=== PATIENT | female | born 1975 | race Caucasian/White ===

== ENCOUNTER 2020-06-30 14:50 | Outpatient (CLI) | payer BC, SELFPAY ==
--- NOTE | ~2020-06-30 | MM_ITS ---
EXAMINATION: MM screening [place] BI w colette HISTORY: Screening mammogram TECHNIQUE: Craniocaudal and mediolateral oblique 3-D tomosynthesis images were obtained and synthetic 2-D images were generated. CAD analysis was submitted and interpreted. COMPARISON: None, baseline BREAST PARENCHYMAL COMPOSITION: The breasts are heterogeneously dense, which may obscure small masses . FINDINGS: RIGHT BREAST: An asymmetry is present in the middle third of the upper breast 6 cm from the nipple on the mediolateral oblique view. LEFT BREAST: A mass is present in the far posterior third of the outer breast which could reflect a l ymph node however further imaging evaluation is recommended.. IMPRESSION: 1. Bilateral breast findings as described above. 2. Additional mammographic views and possible breast ultrasound are recommended to evaluate for malig vianey and establish a baseline given that this is the first mammographic examination. BI-RADS Category 0: Incomplete: Needs additional imaging evaluation. Reviewed, dictated and finalized at location A. ICAL SERVICES DIRECTOR IMPRESSION: 1. Bilateral breast findings as described above. 2. Additional mammographic views and possible breast ultrasound are recommended to evaluate for malignancy and establish a baseline given that this is the fir st mammographic examination. BI-RADS Category 0: Incomplete: Needs additional imaging evaluation.
== END 2020-06-30 14:51 | disposition home or self-care (01) ==
PROVIDERS: PCP Family Medicine; Visit Provider Nurse Practitioner Obstetrics & Gynecology
DX: Z12.31 Encounter for screening mammogram for malignant neoplasm of breast (principal); R92.8 Other abnormal and inconclusive findings on diagnostic imaging of breast
CPT/HCPCS: 77063; 77067

== ENCOUNTER 2020-07-29 12:53 | Outpatient (CLI) | payer BC, SELFPAY ==
--- NOTE | ~2020-07-29 | MMUS_ITS ---
EXAMINATION: MM diagnostic mammo BI, US breast LT limited HISTORY: Right breast asymmetry and left breast mass on baseline screening mammogram TECHNIQUE: Additional 3-D tomosynthesis images of the breasts were performed and synthetic 2-D images were generated. CAD analysis was submitted and interpreted. High resolution limited left breast ultr asound was performed. COMPARISON: 06/30/2020 FINDINGS: MAMMOGRAPHIC FINDINGS: No persistent asymmetry is identified with spot compression of the right breast. There is a 9 mm oval , equal density, obscured mass in far posterior third of the left breast at the 1:00 location 9 cm fr om the nipple which appears to contain fat. ULTRASOUND: Benign-appearing lymph nodes are seen in the upper outer quadrant of the left breast and left axilla. No suspicious cystic or solid mass is identified. IMPRESSION: 1. No mammographic or sonographic evidence of malignancy. 2. Recommend routine screening mammography in one year. BI-RADS Category 2: Benign finding(s). Reviewed, dictated and finalized at location A. R TAXI FERRY OPERATOR IMPRESSION: 1. No mammographic or sonographic evidence of malignancy. 2. Recommend routine screening mammography in one year. BI-RADS Category 2: Benign finding(s).
== END 2020-07-29 12:54 | disposition home or self-care (01) ==
PROVIDERS: PCP Family Medicine; Visit Provider Nurse Practitioner Obstetrics & Gynecology
DX: R92.8 Other abnormal and inconclusive findings on diagnostic imaging of breast (principal); R92.1 Mammographic calcification found on diagnostic imaging of breast
CPT/HCPCS: 76642; 77066

== ENCOUNTER 2021-09-12 08:25 | Outpatient (CLI) | payer BC, SELFPAY ==
--- NOTE | ~2021-09-12 | MM_ITS ---
EXAMINATION: MM screening [place] BI w colette HISTORY: Screening TECHNIQUE: Craniocaudal and mediolateral oblique 3-D tomosynthesis images were obtained and synthetic 2-D images were generated. CAD analysis was submitted and interpreted. COMPARISON: No prior mammogram is available for comparison at this institution. BREAST PARENCHYMAL COMPOSITION: The breasts are heterogeneously dense, which may obscure small masses . FINDINGS: Bilateral breast asymmetries are stable. There is no evidence of suspicious mass, calcifica tion, or architectural distortion to suggest malignancy in either breast. There has been no suspiciou s interval change. IMPRESSION: 1. No mammographic evidence of malignancy. 2. Recommend routine screening mammography in one year. BI-RADS Category 1: Negative Reviewed, dictated and finalized at location A. TURBINE MECHANIC
== END 2021-09-12 08:26 | disposition home or self-care (01) ==
LOC: ANHIMG 08:26
PROVIDERS: PCP Family Medicine; Visit Provider Nurse Practitioner Obstetrics & Gynecology
DX: Z12.31 Encounter for screening mammogram for malignant neoplasm of breast (principal)
CPT/HCPCS: 77063; 77067

== ENCOUNTER 2022-11-23 14:55 | Outpatient (CLI) | payer BC, SELFPAY ==
--- NOTE | ~2022-11-23 | MM_ITS ---
EXAMINATION: MM screening [place] BI w colette HISTORY: Screening mammogram TECHNIQUE: Craniocaudal and mediolateral oblique 3-D tomosynthesis images were obtained and synthetic 2-D images were generated. CAD analysis was submitted and interpreted. COMPARISON: September 12, 2021 bilateral screening mammogram July 29, 2020 diagnostic bilateral mammogram and limited left breast ultrasound 06/30/2020 bilateral screening mammogram BREAST PARENCHYMAL COMPOSITION: The breasts are heterogeneously dense, which may obscure small masses . FINDINGS: Right breast: There are numerous microcalcifications and asymmetry on the right. Diagnostic right jaiden mogram with magnification views and compression views as appropriate to be recommended, with ultrasou nd if required. Left breast: Stable approximately 3.6 mm circumscribed opacity is noted in the posterior upper outer left breast, not significant change since 06/30/2020, consistent with benign process. IMPRESSION: 1. Right breast microcalcifications and asymmetry 2. Diagnostic right mammogram is recommended, with ultrasound if required BI-RADS Category 0: Incomplete: Needs additional imaging evaluation. Reviewed, dictated and finalized at location A.
== END 2022-11-23 14:56 | disposition home or self-care (01) ==
LOC: ANHIMG 14:57
PROVIDERS: PCP Family Medicine; Visit Provider Nurse Practitioner Obstetrics & Gynecology
DX: Z12.31 Encounter for screening mammogram for malignant neoplasm of breast (principal); R92.0 Mammographic microcalcification found on diagnostic imaging of breast
CPT/HCPCS: 77063; 77067

== ENCOUNTER → 2022-11-28 07:48 | Outpatient (CLI) | payer BC, SELFPAY ==
--- NOTE | ~2022-11-28 | US_ITS ---
Abdominal Sonogram: Real-time sonographic imaging of the abdomen was performed. Clinical History: Abnormal serum enzymes Findings: The liver appears normal with no evidence of mass lesion or bile duct dilatation. Main por lucas vein demonstrates normal direction of flow. The spleen is normal in size without evidence of foca l lesion. The gallbladder is well distended, and appears normal with no evidence of gallstone. 5 mm gallbladder wall polyp noted. The common bile duct measures 3 mm. The visualized pancreas, aorta, an d IVC are unremarkable. The right kidney measures 9.7 cm in length and the left kidney measures 10.0 cm. There is no hydronephrosis or renal calculus. Impression: 5 mm gallbladder wall polyp. Reviewed, dictated and finalized at location M. Impression: 5 mm gallbladder wall polyp.
== END ==
PROVIDERS: PCP Family Medicine; Visit Provider Family Medicine
DX: R74.8 Abnormal levels of other serum enzymes (principal); K82.4 Cholesterolosis of gallbladder
CPT/HCPCS: 76700

== ENCOUNTER 2022-12-14 11:47 | Outpatient (CLI) | payer BC, SELFPAY ==
--- NOTE | ~2022-12-14 | MMUS_ITS ---
EXAMINATION: MM diagnostic [place] RT w colette, US breast RT limited HISTORY: Right breast calcification and asymmetry on screening mammogram TECHNIQUE: Additional 3-D tomosynthesis images of the right breast were performed and synthetic 2-D i mages were generated. CAD analysis was submitted and interpreted. High resolution limited right breas t ultrasound was performed. COMPARISON: 11/23/2022, 09/12/2021, 07/29/2020, 06/30/2020 FINDINGS: MAMMOGRAPHIC FINDINGS: An asymmetry of the lower right breast has an appearance similar prior mammograms with spot compressi on. There are grouped fine pleomorphic calcifications in the posterior third of the upper inner quadr ant of the breast at the 1:00 location 6 cm from the nipple. There appears to be a subtle obscured as sociated mass. ULTRASOUND: There is a 12 mm x 6 mm irregular, hypoechoic mass with annular margins, no posterior features, and n o internal vascularity at the 1:00 location 3 cm from the nipple. IMPRESSION: 1. Indeterminate right breast mass with associated calcification. 2. Ultrasound-guided biopsy is recommended. BI-RADS category 4, suspicious findings. Reviewed, dictated and finalized at location A. IMPRESSION: 1. Indeterminate right breast mass with associated calcification. 2. Ultrasound-guided biopsy is recommended. BI-RADS category 4, suspicious findings.
== END 2022-12-14 11:48 | disposition home or self-care (01) ==
PROVIDERS: PCP Family Medicine; Referring Provider Nurse Practitioner Obstetrics & Gynecology; Visit Provider Family Medicine
DX: R92.8 Other abnormal and inconclusive findings on diagnostic imaging of breast (principal)
CPT/HCPCS: 76642; 77061; 77065; G0279

== ENCOUNTER 2023-01-01 09:43 | Outpatient (CLI) | payer BC, SELFPAY ==
--- NOTE | ~2023-01-01 | MMUS_ITS ---
EXAMINATION: US breast biopsy RT w image, MM post biopsy invasive RT DATE: 01/01/2023 11:56 (accession [id number]), 01/01/2023 10:45 (accession [id number]) INDICATION: Indeterminate mass at the 1:00 location of the right breast. Ultrasound-guided core biops y is requested to evaluate for malignancy. TECHNIQUE AND FINDINGS: The risks and potential benefits of the procedure were discussed with the patient including bleeding and infection. A time out was performed. The skin of the right breast was prepared and draped in usua l sterile fashion. 1% lidocaine was used for superficial anesthesia. 1% lidocaine with epinephrine wa s used for deep anesthesia. A vacuum-assisted biopsy needle was advanced through to the outer edge of the region of interest from an inferior approach utilizing sonographic guidance. A total of seven tissue core samples were [place] through the lesion. A tissue marker clip was then placed at the biopsy site. Hemostasis was achie car. A sterile bandage was applied. The patient tolerated procedure well and there was no evidence of immediate complication. The patient was given verbal instructions to return to the Emergency Department in the event of severe breast pa in or rapid breast enlargement. A two view right breast mammogram was obtained to document tissue mar ker clip placement. IMPRESSION: 1. Successful ultrasound-guided vacuum-assisted biopsy of right breast mass with tissue marker placem ent. Reviewed, dictated and finalized at location A. IMPRESSION: 1. Successful ultrasound-guided vacuum-assisted biopsy of right breast mass wit h tissue marker placement.
== END 2023-01-01 09:44 | disposition home or self-care (01) ==
LOC: ANHIMG 09:46
PROVIDERS: PCP Family Medicine; Visit Provider Surgery
DX: N63.10 Unspecified lump in the right breast, unspecified quadrant (principal)
CPT/HCPCS: 19083; 88305; 88342; 88360; A4648

== ENCOUNTER 2023-02-05 09:19 | Outpatient (CLI) | payer BC, SELFPAY ==
--- NOTE | ~2023-02-05 | US_ITS ---
US_MAGSEEDRT_US DATE: 02/05/2023 10:17 INDICATION: Invasive ductal carcinoma; preoperative Magseed placement TECHNIQUE: The purpose of the procedure, technique and potential complications including bleeding wer e discussed with the patient. The patient indicated understanding and gave consent. Timeout procedure was performed. The skin of the right breast was prepared sterile Betadine. Sterile drapes were applied. 1% lidocaine local anesthetic was administered to the skin and underlying subcutaneous tissues at the upper outer aspect of the right breast. A 7 cm maximal needle was introduced from a lateral approach into the ri t breast 1:00 irregular hypoechoic mass. Sonographic images confirmed position of the needle within the mass. The maxillary was deployed through the tip of the needle and the needle withdrawn. The patient was very cooperative and tolerated procedure without complaint or apparent complication. Digital MLO and CC mammographic images following the procedure confirmed the successful deployment of the mag seed marker. IMPRESSION: Successful ultrasound-guided mag seed deployment at 1:00 right breast mass Reviewed, dictated and finalized at Location A. Reviewed, dictated and finalized at location A. IMPRESSION: Successful ultrasound-guided mag seed deployment at 1:[address] mass
--- NOTE | ~2023-02-05 | MM_ITS ---
EXAMINATION: MM post biopsy invasive RT HISTORY: Preoperative Mag seed placement for invasive ductal carcinoma TECHNIQUE: ML and CC right diagnostic mammographic views were obtained following ultrasound-guided ma g seen placement. FINDINGS: A radiopaque maxillary marker is identified in the posterior upper inner right breast appro ximately 1:00 position approximately 8 mm posterior to the trigger radiopaque biopsy marker. IMPRESSION: MAGseed deployment at posterior upper inner quadrant of right breast Reviewed, dictated and finalized at location A.
== END 2023-02-05 09:20 | disposition home or self-care (01) ==
PROVIDERS: PCP Family Medicine; Visit Provider Surgery
DX: C50.911 Malignant neoplasm of unspecified site of right female breast (principal); N63.12 Unspecified lump in the right breast, upper inner quadrant
CPT/HCPCS: 19285; A4648

== ENCOUNTER 2023-02-26 00:06 | Day surgery (SDC) | payer BC, SELFPAY ==
[2023-02-15 14:13] VITALS: BMI 25.7
--- NOTE | 2023-02-15 14:14 | SUR.PREOP ---
Report to the Outpatient Waiting Room, entrance under the green pavilion located off [facility], at time _0600 on date _02/26/23 . Planned Procedure Time: _0730 . Time changes happen often and if your time is changed the preop area will call you the afternoon before. - You and your visitor will be asked to self-screen and do not enter if you have any COVID symptoms. - A mask is optional within the hospital at this time. Patients may have clear liquids (water, carbonated beverages, clear teas, apple juice) until 3 hours prior to surgery with a maximum of 20 ounces. - No food from midnight until time of surgery - Infants may have breast milk until 4 hours before surgery, infant formula 6 hours prior to surgery. - Children will be allowed to drink immediately following surgery. If applicable, please bring a bottle or sippy cup to assist with drinking. Juice, water, soda, and popsicles are readily available. For infants on formula, please bring formula the day of surgery. Pacifiers are allowed. Take the following medications with a SIP of water the morning of surgery: __bupropion DO NOT STOP ANY OF YOUR OTHER PRESCRIPTION MEDICATIONS PRIOR TO SURGERY ?EXCEPT THE FOLLOWING Medications to discontinue per physician ___vitamin supplements Date to take last dose__02/23/23 Please no make-up, nail croatian, hairspray, perfume, deodorant, or body powder the day of surgery. No jewelry (including any body piercings) or valuables the day of surgery, leave them at home. Please take a shower or bath the night before, or the morning of, surgery with an antibacterial soap. Wear comfortable, loose fitting clothing. Children are encouraged to wear pajamas. - Jewelry must be removed prior to entering the operating room. Rings and piercings that are not removed may be cut off. - The hospital will not accept responsibility for valuables. - Please leave all valuables, including medications, at home the day of surgery. If you are going home after surgery, a licensed [employer] flatbed driver must drive you home. - NO public transportation without another adult if you receive anesthesia. - We recommend that an adult stay with you for 24 hours following discharge. - We also recommend that you do not drive, make important decision, drink alcoholic beverages, or take any drugs that were not prescribed by your health care provider for at least 24 hours after your discharge time. For Pediatric surgeries, we recommend two adults accompany the child home. Follow any additional instructions given to you from your surgeon. If you or anyone in your household have experienced Covid symptoms in the past week, please notify your surgeon or the nurse liaison at the phone number below for possible testing. Telephone instructions given to _chantel soctt and asked if any additional questions and then verbalized understanding. Patient advised to call surgeon office or pre surgery nurse liaison [phone] if any additional questions.
--- NOTE | 2023-02-25 15:10 | P.PNAN_ITS ---
Anes - Initial Pre Proc Eval Procedure: Operation Date: 02/26/23 07:30 Proposed Procedures p Right Breast Lumpectomy with [place] Lymph Node Biopsy - Una Meng MD Date/Time: 02/25/23 15:10 Surgeon: Una Meng MD Pre Op Diagnosis: malignant neoplasm unspecified site rt breast Patient Data Age: 47 Gender: F Height: 1.6 m Weight: 65.9 kg Allergies Allergy/AdvReac Type Severity Reaction Status Date / Time No Known Allergies Allergy Mild Verified 02/26/23 06:23 Home Medications Medication Instructions Recorded Confirmed Type bupropion HCl 300 mg 24 hr tablet, 300 mg PO QAM 03/14/21 02/26/23 History extended release propranolol 20 mg tablet See Rx Instructions .Route 11/08/22 02/26/23 Rx .COMPLEX #90 tabs multivitamin (Daily Multi-Vitamin 1 tablet PO DAILY 12/18/22 02/26/23 History tablet) omega-3 fatty acids 1,000 mg 1,000 mg PO DAILY 12/18/22 02/26/23 History capsule cholecalciferol (vitamin D3) 25 25 mcg PO DAILY 02/15/23 02/26/23 History mcg (1,000 unit) tablet (Vitamin D3) Patient hx anesthesia problems: none Family hx anesthesia problems: none Results Review: All pre-operative results and documents have been reviewed as part of the pre- operative evaluation. [facility] Past Medical History Medical History (Updated 02/25/23 @ 15:11 by Terrence Denise MD) Breast mass, right Invasive ductal carcinoma of right breast Migraine without aura and without status migrainosus, not intractable Family History Family History Mother Patient's mother is in good health Father Patient's father is in good health Family history of malignant melanoma Acute myocardial infarction Sibling Patient's sister is in good health Grandparent Cerebrovascular accident Social History Social History Smoking status: Never smoker Second hand tobacco smoke exposure: No Alcohol intake: current Substance use: never Substance use type: does not use Lack of Transportation: No Lack of Food: Never True Current Housing: I Have Housing Concerned About Future Housing: No Difficulty Paying Gas/Electric Bills: No Difficulty Paying for Meds: No Currently Unemployed: No Education: Bachelor's Degree Difficulty w/ Childcare or Family Care: No Living arrangements: with family Occupation/Education: occupation Gender identity (if verbalized by the patient): Female Spiritual care concerns: No Anes - Eval Final PreProcedure Day of Procedure 02/25/23 15:10 Patient weight: normal Heart: regular rate and rhythm Lungs: clear to auscultation and normal air movement Airway: Mallampati scale class II Neurological: alert and oriented Last oral intake: >/= 8 hours ASA classification: III Emergent: no Anesthetic plan: proceed Anesthesia type and monitoring: general LMA Results Review: All pre-operative results and documents have been reviewed as part of the pre- operative evaluation. Informed Consent: The patient's anesthetic plan and its attendant risks and benefits were discussed with the patient/family/POA. Questions were solicited and answers provided to the satisfaction of the patient/family/POA.
[2023-02-26] VITALS (9 sets, daily range): BP systolic 98–115; BP diastolic 52–77; PULSE 64–78; RESP 1–16; TEMP 36.2–36.7; O2SAT 100
--- NOTE | ~2023-02-26 | MM_ITS ---
MM_FAXITRON_MG 03/01/2023 14:50 Indication: Faxitron breast specimen post biopsy Procedure: Single breast specimen image Comparison: 02/05/2023 Findings: Breast specimen contains a tissue marker from previous biopsy and magseed. Impression: 1: Post biopsy specimen contains a magseed and tissue marker. Please refer to procedural report for d etails. Reviewed, dictated and finalized at location A. Impression: 1: Post biopsy specimen contains a magseed and tissue marker. Please refer to p ld report for details.
[2023-02-26] MEDS: ACETAMINOPHEN 500 MG TABLET 1000 MG PO (06:26)
--- NOTE | 2023-02-26 06:32 | WPDHPUPDATE1 ---
History and Physical Update Update Date/Time: 02/26/23 06:32 History and Physical has been reviewed, including an updated exam of the patient. There are NO changes in the patient's condition. Risks, benefits, and alternatives have been discussed and questions answered. Patient agrees to proceed with procedure.
[2023-02-26] MEDS: LACTATED RINGERS 1,000 ML 30 ML IV CONT ×2 (06:52→10:16)
[2023-02-26] MEDS: ceFAZolin 2 GM/D5W 50 ML 2 GM/50 ML BAG IVPB (07:31)
[2023-02-26] MEDS: BUPIVACAINE/EPINEPHRINE 0.5% 50 ML VIAL 20 ML INFILTRATE (08:14)
--- NOTE | 2023-02-26 10:15 | W.PM.PROC2 ---
Procedure Note - Detailed Date of Procedure 02/26/23 Pre-op Diagnosis Right breast invasive ductal carcinoma Post-op Diagnosis Same Procedure Performed 1. Right Lumpectomy with magseed localization, 2. [place] lymph node injection with magtrace 3. [place] lymph node biopsy (deep axillary lymph node x2) Surgeon Una Meng MD [employer] CHONG Dumont Anesthesia General Findings [place] lymph node biopsy performed, 2 nodes removed using sentimag probe Description of Procedure Patient was identified in the pre-operative area and brought to the OR suite. She underwent tumor localization previously by IR with magseed placement. She was laid supine in the operating table and sequential compression devices were applied. General anesthesia was induced without difficulties. Magtrace (2ml) was injected into the subareolar area for the sentinel lymph node tracing and biopsy, followed by a vigorous massage. The right chest and axillary regions were prepped and draped in a sterile fashion. The sentimag probe was used to identify the area with highest activity in the axilla, and a small incision was made overlying this area. Dissection was carried down through the subcutaneous tissue into the clavipectoral fascia, which was incised. The probe was again used to scan this area, and a hot and brown node was identified. This was carefully grasped and excised using the Ligasure device. The gamma probe was used to identify a second node, which was in very close proximity to the initial sentinel node, and this was also hot and brown. The probe was used to verify that no additional areas of significant signal activity was present in the axilla. The wound was irrigated with saline and hemostasis was assured. The clavipectoral fascia was approximated with 3-0 vicryl running suture, followed by a deep dermal layer that was closed with 3-0 vicryl. The skin was closed with 4-0 monocryl in a subcuticular fashion. Dermabond was applied followed by a sterile dressing. Attention was then turned to the breast. The magnetic probe was used to identify the area where the magseed was placed and an incision was made overlying this area. Dissection was carried down through the subcutaneous tissue into the breast tissue. The tumor was identified with palpation and using probe, and a rim of normal breast tissue was excised along with the tumor for our lumpectomy specimen. Once the specimen was completely excised, it was oriented using surgical paint according to nuclear weapons custodian instructions. The faxitron was used for radiographic confirmation of Tumor, biopsy marker and magseed within the specimen. An additional superior margin was obtained and sent to pathology as permanent specimen. Once the radiographic confirmation was received, the wound was irrigated with saline and hemostasis was assured. The deep dermal layer was approximated using interrupected 3-0 vicryl followed by 4-0 monocryl for the skin. Dermabond was applied followed by a surgical bra. Patient was awoken from anesthesia and taken to the recovery area in stable condition. All needles, instruments and sponge counts were correct as reported by the operating room staff. Patient tolerated the procedure well with no immediate complications. Estimated Blood Loss 15 Drains No Packing No Pathology Yes Complications No immediate complications Condition Stable Disposition PACU [facility] Billing Surgery - Charge Forward: Surgery Billing
--- NOTE | 2023-02-26 10:58 | SUR.PHASEI ---
1045-Dr. Meng at [facility] to speak with pt.
[2023-02-26] MEDS: ONDANSETRON INJ 4 MG/2 ML VIAL IV PUSH (11:26)
[2023-02-26] MEDS: oxyCODONE HCL (*CRX) 5 MG TAB IR PO (11:36)
--- NOTE | 2023-02-26 11:54 | PM.DS ---
DS: Admitting Diagnosis Discharge Date 02/26/23 Admitting Diagnosis right breast cancer DS: Discharge Diagnosis Discharge Diagnosis Plan discharge home, self care, two week clinic follow up DS: Summary Hospital Course Hospital Course: 47 y/o female with R breast cancer admitted thru same day surgery for right breast lumpectomy and sentinel lymph node biopsy. pt tolerated procedure well, discharged home without issue. Time Spent with Patient Time attestation: Total time spent providing and/or coordinating discharge services: DS: Data Data Completed and Pending Pending studies at discharge: Pending at discharge 02/26/23 08:52 Surgical [PTH] Routine Surgical [PTH] Routine Discharge Plan Discharge Patient Disposition: Home, Self-Care Discharge Instructions: Una Meng MD [facility] [address] [place] [address] Post-operative Discharge Instructions Diet: As tolerated Activity: Avoid overhead movements with the affected arm/side for 2 weeks. You should walk at least 3-4 times daily, but do not exert yourself. Ok to go up and down stairs. Dressing: Wear the compression bandage or compression bra at all times, including at night while sleeping. Ok to remove for shower. Shower: Ok to shower, pat incision dry, and replace bra/compression bandage. Follow up: Return to office in 2 weeks for follow up visit with Earline Gómez PA-C. Call the office with any questions or concerns in the meantime. If after hours, please call the rotary veneer machine operator to be connected to the surgeon. If you have an emergency , call 911 or go to the nearest ER. Follow-up/Referrals: Una Meng MD [Physician] - Discharge Medications: No Action bupropion HCl 300 mg tablet extended release 24 hr 300 mg PO QAM multivitamin [Daily Multi-Vitamin] Tablet 1 tablet PO DAILY cholecalciferol (vitamin D3) [Vitamin D3] 25 mcg (1,000 unit) Tablet 25 mcg PO DAILY propranolol 20 mg tablet See Rx Instructions .ROUTE .COMPLEX Qty: 90 2RF Dose Instruction: TAKE 1 TABLET BY MOUTH EVERYDAY AT BEDTIME Patient Comments: takes for migraines Rx Instructions: TAKE 1 TABLET BY MOUTH EVERYDAY AT BEDTIME
== END 2023-02-26 12:23 | disposition home or self-care (01) ==
PROVIDERS: PCP Family Medicine; Visit Provider Surgery
PROC: (CPT 19301; principal; 2023-02-26 07:30)
DX: C50.911 Malignant neoplasm of unspecified site of right female breast (principal)
CPT/HCPCS: 19301; 38525; 38792; 76098; 88307; 88342; A9270; C1713; J0690; J1100; J1170; J2250; J2371; J2405; J2704; J3010; J7120

== ENCOUNTER 2023-03-04 10:37 | Outpatient (RCR) | payer BC, SELFPAY | END 2023-03-11 12:44 | LOC: AMCINF 10:37 | PROVIDERS: PCP Family Medicine; Visit Provider Internal Medicine | DX: C50.111 Malignant neoplasm of central portion of right female breast (principal); Z17.0 Estrogen receptor positive status [ER+]; Z78.0 Asymptomatic menopausal state | CPT/HCPCS: 99199 ==

== ENCOUNTER 2023-03-21 08:46 | Outpatient (CLI) | payer BC, SELFPAY ==
--- NOTE | 2023-03-21 08:45 | ECG_ITS ---
Measurements Intervals [place] Rate: 73 P: 0 WY: 109 QRS: 32 QRSD: 82 T: -14 QT: 368 QTc: 407 Interpretive Statements SINUS RHYTHM WITH SHORT WY INTERVAL ST DEVIATION AND MODERATE T-WAVE ABNORMALITY, CONSIDER ANTERIOR ISCHEMIA [-0.1+ mV T WAVE IN V3/V4] ABNORMAL ECG NO PREVIOUS ECG AVAILABLE FOR COMPARISON Electronically Signed On 03-21-2023 9:19:13 CDT by Manav Card M.D.
[2023-03-21 12:02] LABS: Hematocrit 41.1 % (37.0-47.0); Hemoglobin 13.7 g/dL (12.0-15.0)
== END 2023-03-21 08:47 | disposition home or self-care (01) ==
LOC: ANHSURGERY 08:49
PROVIDERS: Anesthesiology; PCP Family Medicine; Visit Provider Surgery
DX: Z01.818 Encounter for other preprocedural examination (principal); R94.31 Abnormal electrocardiogram [ECG] [EKG]; C50.919 Malignant neoplasm of unspecified site of unspecified female breast
CPT/HCPCS: 36415; 85014; 85018; 86850; 86900; 86901; 93005

== ENCOUNTER 2023-03-26 04:09 | Day surgery (SDC) | payer BC, SELFPAY ==
[2023-03-15 15:23] VITALS: BMI 25.7
--- NOTE | 2023-03-15 15:49 | PC.NURSE ---
Report to the Outpatient Waiting Room, entrance under the green pavilion located off [facility], at 0600 on 03-26-23. Planned Procedure Time: 0730. Time changes happen often and if your time is changed the preop area will call you the afternoon before. - You and your visitor will be asked to self-screen and do not enter if you have any COVID symptoms. - A mask is optional within the hospital at this time. Patients may have clear liquids (water, carbonated beverages, clear teas, apple juice) until 3 hours prior to surgery with a maximum of 20 ounces. 0430 - No food from midnight until time of surgery - Infants may have breast milk until 4 hours before surgery, formula 6 hours prior to surgery. - Children will be allowed to drink immediately following surgery. If applicable, please bring a bottle or sippy cup to assist with drinking. Juice, water, soda, and popsicles are readily available. For infants on formula, please bring formula the day of surgery. Pacifiers are allowed. Take the following medications with a SIP of water the morning of surgery: Bupropion DO NOT STOP ANY OF YOUR OTHER PRESCRIPTION MEDICATIONS PRIOR TO SURGERY ?EXCEPT THE FOLLOWING Medications to discontinue per physician: vitamins and supplements Date to take last dose: 03-23-23 Please no make-up, nail hungarian, hairspray, perfume, deodorant, or body powder the day of surgery. No jewelry (including any body piercings) or valuables the day of surgery, leave them at home. Please take a shower or bath the night before, or the morning of, surgery with an antibacterial soap. Wear comfortable, loose fitting clothing. Children are encouraged to wear pajamas. - Jewelry must be removed prior to entering the operating room. Rings and piercings that are not removed may be cut off. - The hospital will not accept responsibility for valuables. - Please leave all valuables, including medications, at home the day of surgery. If you are going home after surgery, a licensed vending route driver must drive you home. - NO public transportation without another adult if you receive anesthesia. - We recommend that an adult stay with you for 24 hours following discharge. - We also recommend that you do not drive, make important decision, drink alcoholic beverages, or take any drugs that were not prescribed by your health care provider for at least 24 hours after your discharge time. For Pediatric surgeries, we recommend two adults accompany the child home. Follow any additional instructions given to you from your surgeon. If you or anyone in your household have experienced Covid symptoms in the past week, please notify your surgeon or the nurse liaison at the phone number below for possible testing. Telephone instructions given to Rosy Cottrell and asked if any additional questions and then verbalized understanding. Patient advised to call surgeon office or pre surgery nurse liaison [phone] if any additional questions.
[2023-03-26] VITALS (11 sets, daily range): BP systolic 102–137; BP diastolic 58–74; PULSE 58–79; RESP 12–18; TEMP 35.8–37; O2SAT 100
[2023-03-26] MEDS: ACETAMINOPHEN 500 MG TABLET 1000 MG PO (06:21)
[2023-03-26] MEDS: LACTATED RINGERS 1,000 ML 30 ML IV CONT ×2 (06:21→12:16)
--- NOTE | 2023-03-26 06:58 | WPDANESEPPF ---
Anes - Initial Pre Proc Eval Procedure: Operation Date: 03/26/23 07:30 Proposed Procedures p Completion Right Mastectomy, Left Prophylactic Mastectomy, - Una Meng MD s Bilateral Breast Reconstruction with Silicone Implants - Shady Garcia MD Date/Time: 03/26/23 06:58 Surgeon: Una Meng MD Pre Op Diagnosis: breast CA Patient Data Age: 47 Gender: F Height: 1.6 m Weight: 67.7 kg Last Vital Signs Temp 36.1 C L 03/26/23 06:09 Pulse 70 03/26/23 06:09 Resp 16 03/26/23 06:09 BP 111/74 03/26/23 06:09 Pulse Ox 100 03/26/23 06:09 O2 Del Method Room Air 03/26/23 06:09 Allergies Allergy/AdvReac Type Severity Reaction Status Date / Time No Known Allergies Allergy Mild Verified 03/26/23 06:30 Home Medications Medication Instructions Recorded Confirmed Type bupropion HCl 300 mg 24 hr tablet, 300 mg PO QAM 03/14/21 03/26/23 History extended release propranolol 20 mg tablet See Rx Instructions .Route 11/08/22 03/26/23 Rx .COMPLEX #90 tabs multivitamin (Daily Multi-Vitamin 1 tablet PO DAILY 12/18/22 03/26/23 History tablet) cholecalciferol (vitamin D3) 25 25 mcg PO DAILY 02/15/23 03/26/23 History mcg (1,000 unit) tablet (Vitamin D3) Patient hx anesthesia problems: post op nausea/vomiting Family hx anesthesia problems: none Results Review: All pre-operative results and documents have been reviewed as part of the pre-operative evaluation. PENDING SALE TO [facility] Past Medical History Medical History Breast mass, right Invasive ductal carcinoma of right breast Migraine without aura and without status migrainosus, not intractable Family History Family History Mother Patient's mother is in good health Father Patient's father is in good health Family history of malignant melanoma Acute myocardial infarction Sibling Patient's sister is in good health Grandparent Cerebrovascular accident Social History Social History Smoking status: Never smoker Second hand tobacco smoke exposure: No Alcohol intake: never Substance use: never Substance use type: does not use Lack of Transportation: No Lack of Food: Never True Current Housing: I Have Housing Concerned About Future Housing: No Difficulty Paying Gas/Electric Bills: No Difficulty Paying for Meds: No Currently Unemployed: No Education: Bachelor's Degree Difficulty w/ Childcare or Family Care: No Living arrangements: with family Occupation/Education: occupation Gender identity (if verbalized by the patient): Female Spiritual care concerns: No Anes - Eval Final PreProcedure Day of Procedure 03/26/23 06:58 Patient weight: overweight Heart: regular rate and rhythm Lungs: clear to auscultation Airway: Mallampati scale class II Neurological: alert and oriented Last oral intake: >/= 8 hours ASA classification: III Emergent: no Anesthetic plan: proceed Anesthesia type and monitoring: general ETT and standard monitoring Results Review: All pre-operative results and documents have been reviewed as part of the pre-operative evaluation. Informed Consent: The patient's anesthetic plan and its attendant risks and benefits were discussed with the patient/family/POA. Questions were solicited and answers provided to the satisfaction of the patient/family/POA.
--- NOTE | 2023-03-26 07:01 | WPDHPUPDATE1 ---
History and Physical Update Update Date/Time: 03/26/23 07:01 History and Physical has been reviewed, including an updated exam of the patient. There are NO changes in the patient's condition. Risks, benefits, and alternatives have been discussed and questions answered. Patient agrees to proceed with procedure. Pt. seen and examined in pre-op holding area. continues to desire to proceed with immediate bilateral breast reconstruction with silicone implants and ADM possible tissue expanders at time of mastectomy. reviewed procedure, post-op expectations and risks including but not limited to bleeding, infection, asymmetry, undesireable cosmetic appearance, partial/total skin/nipple loss, device failure, capsular contracture. Patient stated understanding and signed consent wishing to proceed.
--- NOTE | 2023-03-26 07:02 | WPDHPUPDATE1 ---
History and Physical Update Update Date/Time: 03/26/23 07:02 History and Physical has been reviewed, including an updated exam of the patient. There are NO changes in the patient's condition. Risks, benefits, and alternatives have been discussed and questions answered. Patient agrees to proceed with procedure.
[2023-03-26] MEDS: SCOPOLAMINE 1.5 MG PATCH TRANSDERM (07:03)
[2023-03-26] MEDS: ceFAZolin 2 GM/D5W 50 ML 2 GM/50 ML BAG IVPB (07:51)
[2023-03-26] MEDS: ceFAZolin SODIUM 1 GM VIAL ×2 (08:47→08:48)
[2023-03-26] MEDS: LIDO 1%/EPINEPHRINE 1:100,000 20 ML VIAL 30 ML INFILTRATE (08:51)
[2023-03-26] MEDS: BUPivacaine HCL 0.5% PF 30 ML VIAL INFILTRATE (08:52)
--- NOTE | 2023-03-26 11:29 | W.PM.PROC2 ---
Procedure Note - Detailed Date of Procedure 03/26/23 Pre-op Diagnosis Right breast invasive ductal carcinoma with associated multi focal DCIS Post-op Diagnosis Same Procedure Performed 1. Completion right total mastectomy 2. Prophylactic left total mastectomy 3. Left breast subareolar injection of magtracer Surgeon Una Meng MD Departure Clerk Shady Garcia MD Anesthesia General Indications 47 year old female s/p right lumpectomy with sentinel lymph node biopsy for invasive ductal carcinoma and associated DCIS, who was found to have a positive inferior and lateral for multifocal DCIS and close margin for anterior-posterior. After discussing options for re-excision of margins with possible resulting asymmetry compared to the contralateral breast, verses completion mastectomy with contralateral prophylactic mastectomy with immediate reconstruction, patient has elected to proceed with bilateral mastectomy with immediate reconstruction. Risks of procedure were discussed with the patient which included but limited to risk of bleeding infection, positive margins, recurrence, nipple necrosis, possible need additional procedures in the future, as well as the risk of anesthesia. All questions answered patient agrees to proceed. Findings Previous right lumpectomy cavity was encountered during dissection, and anterior surface of previous lumpectomy cavity was marked with black stitches for pathology orientation. Description of Procedure Patient was identified in the preoperative holding area brought to the operating room suite. She was placed supine operating table sequential compression devices were applied. A Camacho was placed using sterile technique. General anesthesia was induced without difficulty. Bilateral chest areas were prepped draped in sterile fashion. Decision was made to start with the left prophylactic side. A extended superior periareolar incision was made and dissection was carried down through the subcutaneous tissue and continued through the thin areolar tissue plane between the subcutaneous tissue with the breast tissue superiorly to the inferior border of the clavicle. We then continued our dissection medially to the lateral aspect of the sternum, inferiorly to the inframammary fold and laterally to latissimus. Once this was performed the breast tissue along with the pectoralis fascia was dissected off the pectoralis muscle posteriorly. The mastectomy specimen was then marked short stitch superior long stitch lateral and the nipple was painted black orientation. The specimen was then sent to pathologist for fresh specimen. Hemostasis was assured. Dr. Garcia Constantin proceed to perform the immediate reconstruction on the left side. Please refer to his operative note for further details. Attention was then turned to the right breast. An extended superior periareolar incision was again made and dissection was carried down to the subcutaneous tissue until the thin areolar tissue plane was encountered. This was then dissected superiorly to the inferior aspect of the clavicle, medially to the lateral aspect of the sternum, laterally to the latissimus dorsi, and inferiorly to the inframammary fold. The breast along with the pectoralis fascia was then dissected off the pectoralis muscle and the specimen was painted with surgical pain for orientation and sent to pathology as the fresh specimen. Hemostasis was assured. The case was then turned over to Dr. Radha jin for the right breast immediate reconstruction with implants. Again please refer to his operative note for further details. All needles counts were correct as reported by the operating room staff. Patient tolerated the procedure well with no immediate complications. Another surgeon was required for assistance due to complexity and length of the case. Implants See Dr Garcia operative note for further details in regards to implants. Estimated Blood Loss 30 Drains Yes Pa
[2023-03-26] MEDS: ceFAZolin SODIUM 1 GM VIAL 2 GM IV PUSH (11:43)
--- NOTE | 2023-03-26 11:59 | W.PM.PROC2 ---
Procedure Note - Detailed Date of Procedure 03/26/23 Pre-op Diagnosis breast CA Post-op Diagnosis Same Procedure Performed b/l breast reconstruction with silicone implant placement and acelullar dermal matrix at time of nipple-sparing mastectomy. Surgeon Shady Garcia MD Technology Director Earline guzman PA-C Anesthesia General Indications Patient was seen in the preoperative holding area. We discussed the risks, including but not limited to bleeding, infection, undesirable cosmetic appearance, partial / total skin / nipple loss, device failure, capsular contracture. Patient stated understanding and signed the consent form which to proceed. Patient was seen in the preoperative holding area where the breasts were marked. She was taken back to the operating room. She was placed on the table in the supine position. Time-out was performed with Anesthesia, surgeons, and staff agreeing on patient's name site and surgery to be performed. The breasts were prepped and draped in the usual sterile fashion. Care was then given to Dr. Meng, who proceeded to perform the left nipple sparing prophylactic mastectomy with my assistance. She was also assisted by Earline magallanes p.a.-C. after the left mastectomy was performed I irrigated with antibiotic irrigation. Hemostasis was obtained with Bovie electrocautery. I proceeded with placing a piece of large contoured medium thickness AlloDerm into the cavity and suturing it to the inframammary fold and anterior axillary line with 2 0 Vicryl suture. I provisionally placed a 345 cc silicone implant Sizer. this was noted to be too wide and patient needed some more volume. The implant Sizer was removed. A 10 flat Juliocesar drain was placed coming out of the inframammary fold. A irrigated 1 final time with antibiotic irrigation. I then prepped the skin with Betadine placed down new towels. We changed our gloves. Instruments were all washed in the antibiotic irrigation. I then proceeded with taking a Natrelle SCF -365 implant is serial [id number] directly from the package rinsed in antibiotic irrigation. And placed in appropriate position in the left breast pocket. The AlloDerm was draped over the implant. There is good shape and positioning of the implant. I proceeded with immediate closure of the incision with 3-0 Vicryl suture and 4-0 Monocryl for subcuticular closure. The nipple appeared viable with good cap refill. The drain was hooked to bulb suction. At this time I proceeded to further assist Dr. Meng with completion of the right completion nipple sparing mastectomy. Once performed I again irrigated the pocket with antibiotic irrigation and soon sewed in a another piece of contoured perforated AlloDerm along the inframammary fold and anterior axillary line with 2-0 Vicryl suture. I was assisted by Earline Guzman PA-C in doing this. I irrigated the pocket with antibiotic irrigation and hemostasis with Bovie electric cautery. I checked my pocket with the Sizer and this appeared symmetric to the reconstructed left breast in pocket position. I removed the Sizer. I irrigated the pocket and then prepped the skin with Betadine placed down new towels changed our gloves washed our instruments and antibiotic irrigation and then took a another Aprovecha.come SCF -365 silicone implant serial [id number] ensured it was covered with alloderm and immediately closed with 3-0 vicryl and 4-0 monocryl. There was good symmetry to the implants in size and position. The nipples appeared viable. Drains were hooked to bulb suction. Further dressing of mastisol, steri-strip, 4x4, and tegaderm was applied followed by ABDs and surgical bra. The patient was awaken from anesthesia and transferred to recovery in stable condition. [id number], [id number],59 [id number]-LY,59, [id number],59, [id number]-TX,80,59 and [id number]-EV,80,59 Description of Procedure see above Estimated Blood Loss 5 Drains Yes (10blake b/l breast) Complications None Disposition CHONG
[2023-03-26] MEDS: HYDROmorphone HCL INJ (*CRX) 1 MG/ML SYR 0.5 MG IV PUSH ×4 (12:35→13:06)
[2023-03-26] MEDS: ceFAZolin 1 GM/NS 50 ML 1 GM/50 ML BAG IVPB (16:00)
[2023-03-26] MEDS: HYDROcodone/acetaminophen (*CRX) 5-325 MG TABLET 1 TAB PO (16:45)
[2023-03-26] MEDS: DOCUSATE SODIUM 100 MG CAPSULE PO (16:45)
[2023-03-26] MEDS: PROPRANOLOL HCL 20 MG TABLET PO (20:30)
[2023-03-26] MEDS: HYDROcodone/acetaminophen (*CRX) 5-325 MG TABLET 2 TAB PO (20:30)
[2023-03-27 00:10] VITALS: BP 136/77; PULSE 64; RESP 18; TEMP 36.7
[2023-03-27] MEDS: ceFAZolin 1 GM/NS 50 ML 1 GM/50 ML BAG IVPB ×2 (00:11→08:14)
[2023-03-27 04:40] VITALS: BP 119/64; PULSE 62; RESP 16; TEMP 36.4
[2023-03-27] MEDS: HYDROcodone/acetaminophen (*CRX) 5-325 MG TABLET 1 TAB PO (04:44)
[2023-03-27 08:05] VITALS: BP 126/67; PULSE 63; RESP 18; TEMP 37.3; O2SAT 100
--- NOTE | 2023-03-27 08:14 | PM.PNGS ---
Progress Note: A&P Assessment and Plan (1) Ductal carcinoma in situ (DCIS) of right breast: Code(s): D05.11 - Intraductal carcinoma in situ of right breast Status: Acute Assessment and Plan: 47 y/o female with R breast cancer healing well POD#1 s/p right and prophylactic left mastectomy and immediate prepectoral silicone implant recon. reviewed impression and healing expectations, reviewed signs/symptoms of concerns including but not limited to bleeding, redness, swelling, change in breast size, excessive drainage, chest pain, SOB, BLE pain. discussed dressing/activity instructions. pt voiced understanding and agreement. Plan 1) dc home 2) follow up in office 1 week Subjective Subjective Date/Time Seen: 03/27/23 08:14 Interval history: 47 y/o female with right breast cancer POD#1 s/p right and prophylactic left mastectomy and immediate prepectoral silicone implant recon. no concerns overnight. pain well managed 1 tab norco q6. ambulating and voiding without issue, no bowel movement yet. feels ready to be discharged home today. Review of Systems Constitutional: Constitutional: Denies chills, Denies fever(s) and Denies headache(s) Cardiovascular: Cardiovascular: Denies chest pain Respiratory: Respiratory: Denies dyspnea Gastrointestinal: Gastrointestinal: Denies abdominal pain, Denies nausea and Denies vomiting Musculoskeletal: Musculoskeletal: Denies muscle cramps Integumentary/Breasts: Skin/Breast: Reports as per HPI Exam Const: General: comfortable and no acute distress Orientation/consciousness: patient oriented x3 HENMT: Head: normal to inspection Eyes: Sclera: sclerae normal Neck: Neck: normal visual inspection and no JVD Chest: Other: bilateral breasts with transverse and superior areola incisions covered with gauze and tegaderm dressings. bilateral nipples warm and well perfused. bilateral breast skin flaps warm and well perfused. bilateral IMF symmetric, implants in place. NAC placement symmetric. drain sites with minimal dry serosanguinous drainage on dressing, suction maintained, minimal serosanguinous drainage. Resp: Effort & Inspection: normal respiratory effort Cardio: Jugular venous distension: no JVD Rate: regular rate Rhythm: regular rhythm Skin: General skin exam: normal color Objective Data Vital Signs Vital Signs: Vital Signs - 24 hr 03/26/23 12:16 03/26/23 12:30 03/26/23 12:45 Temperature 35.8 C L 36.1 C L Pulse Rate 63 58 L 61 Respiratory Rate 16 12 12 Blood Pressure 102/58 L 125/72 125/72 Pulse Oximetry 100 100 100 Oxygen Delivery Simple Face Mask Simple Face Mask Simple Face Mask Oxygen Flow Rate 8 8 8 03/26/23 13:00 03/26/23 13:15 03/26/23 13:30 Temperature Pulse Rate 62 58 L 66 Respiratory Rate 12 12 12 Blood Pressure 125/68 122/70 122/70 Pulse Oximetry 100 100 100 Oxygen Delivery Room Air Room Air Room Air Oxygen Flow Rate 03/26/23 13:45 03/26/23 14:05 03/26/23 16:15 Temperature 36.3 C L 37.0 C Pulse Rate 61 69 69 Respiratory Rate 12 18 16 Blood Pressure 129/66 121/58 L 137/74 Pulse Oximetry 100 100 100 Oxygen Delivery Room Air Oxygen Flow Rate 03/26/23 20:35 03/27/23 00:10 03/27/23 04:40 Temperature 36.9 C 36.7 C 36.4 C Pulse Rate 79 64 62 Respiratory Rate 16 18 16 Blood Pressure 120/64 136/77 119/64 Pulse Oximetry Oxygen Delivery Oxygen Flow Rate Intake/Output Intake/Output: Intake & Output 03/24/23 03/25/23 03/26/23 03/27/23 23:59 23:59 23:59 23:59 Intake Total 1800 50 Output Total 455 38 Balance 1345 12 Meds/Results Medications: Active Medications Generic Name Dose Route Start Last Admin Trade Name Freq PRN Reason Stop Dose Admin Acetaminophen 500 mg 03/26/23 12:15 Acetaminophen 500 Mg Tablet PO Q6H PRN Mild Pain (1-3) or Fever Hydrocodone Bitart/Acetaminophen 2 tab 03/26/23 12:15 03/26/23 20:30 Hydrocodone/Acetaminophen (*Crx) 5-325
[2023-03-27] MEDS: DOCUSATE SODIUM 100 MG CAPSULE PO (08:15)
[2023-03-27] MEDS: buPROPion HCL XL (24 HR) 150 MG TABCR 300 MG PO (08:15)
[2023-03-27] MEDS: MULTIVITAMINS THERAPEUTIC TAB (*BKC) 1 TABLET PO (08:15)
[2023-03-27] MEDS: CHOLECALCIFEROL 1,000 UNITS TABLET 1000 UNITS PO (08:15)
--- NOTE | 2023-03-27 09:56 | WPDPN ---
Progress Note: A&P Assessment and Plan (1) Acquired absence of both breasts: Code(s): Z90.13 - Acquired absence of bilateral breasts and nipples Status: Acute Plan 47yo female doing well pod#1 s/p b/l nipple-sparing mastectomy and immediate recon with silicone implant and adm. agree with discharge today drain teaching f/u 1 week Subjective Date/time seen: 03/27/23 09:56 Interval history: PT. seen and examine at bedside. pain controlled. no concerns. drain output ~80cc since OR. Objective Data Vital Signs Vital Signs: Vital Signs - 24 hr 03/26/23 12:16 03/26/23 12:30 03/26/23 12:45 Temperature 35.8 C L 36.1 C L Pulse Rate 63 58 L 61 Respiratory Rate 16 12 12 Blood Pressure 102/58 L 125/72 125/72 Pulse Oximetry 100 100 100 Oxygen Delivery Simple Face Mask Simple Face Mask Simple Face Mask Oxygen Flow Rate 8 8 8 03/26/23 13:00 03/26/23 13:15 03/26/23 13:30 Temperature Pulse Rate 62 58 L 66 Respiratory Rate 12 12 12 Blood Pressure 125/68 122/70 122/70 Pulse Oximetry 100 100 100 Oxygen Delivery Room Air Room Air Room Air Oxygen Flow Rate 03/26/23 13:45 03/26/23 14:05 03/26/23 16:15 Temperature 36.3 C L 37.0 C Pulse Rate 61 69 69 Respiratory Rate 12 18 16 Blood Pressure 129/66 121/58 L 137/74 Pulse Oximetry 100 100 100 Oxygen Delivery Room Air Oxygen Flow Rate 03/26/23 20:35 03/27/23 00:10 03/27/23 04:40 Temperature 36.9 C 36.7 C 36.4 C Pulse Rate 79 64 62 Respiratory Rate 16 18 16 Blood Pressure 120/64 136/77 119/64 Pulse Oximetry Oxygen Delivery Oxygen Flow Rate 03/27/23 08:05 Temperature 37.3 C Pulse Rate 63 Respiratory Rate 18 Blood Pressure 126/67 Pulse Oximetry 100 Oxygen Delivery Oxygen Flow Rate Intake/Output Intake/Output: Intake & Output 03/24/23 03/25/23 03/26/23 03/27/23 23:59 23:59 23:59 23:59 Intake Total 1800 290 Output Total 455 51 Balance 1345 239 Meds/Results Medications: Active Medications Generic Name Dose Route Start Last Admin Trade Name Freq PRN Reason Stop Dose Admin Acetaminophen 500 mg 03/26/23 12:15 Acetaminophen 500 Mg Tablet PO Q6H PRN Mild Pain (1-3) or Fever Hydrocodone Bitart/Acetaminophen 2 tab 03/26/23 12:15 03/26/23 20:30 Hydrocodone/Acetaminophen (*Crx) 5-325 Mg Tablet PO 2 tab Q4H PRN Administration Pain Rated 7-10 Hydrocodone Bitart/Acetaminophen 1 tab 03/26/23 12:15 03/27/23 04:44 Hydrocodone/Acetaminophen (*Crx) 5-325 Mg Tablet PO 1 tab Q4H PRN Administration Pain Rated 4-6 Bupropion HCl 300 mg 03/27/23 09:00 03/27/23 08:15 Bupropion Hcl Xl (24 Hr) 150 Mg Tabcr PO 300 mg QAM MARIANO Administration Docusate Sodium 100 mg 03/26/23 17:00 03/27/23 08:15 Docusate Sodium 100 Mg Capsule PO 100 mg BID MARIANO Administration Hydromorphone HCl 0.5 mg 03/26/23 06:59 03/26/23 13:06 Hydromorphone Hcl Inj (*Crx) 1 Mg/Ml Syr IV PUSH 0.5 mg Q5M PRN Administration Pain Hydromorphone HCl 0.5 mg 03/26/23 12:15 Hydromorphone Hcl Inj (*Crx) 1 Mg/Ml Syr IV PUSH Q2H PRN Pain Rated 4-6 Hydromorphone HCl 1 mg 03/26/23 12:15 Hydromorphone Hcl Inj (*Crx) 1 Mg/Ml Syr IV PUSH Q2H PRN Pain Rated 7-10 Cefazolin Sodium 1 gm in 50 mls @ 100 mls/hr 03/26/23 16:00 03/27/23 08:14 Ancef 1 Gm/Ns 50 Ml IVPB 100 mls/hr Q8H MARIANO Administration Multivitamins Therapeutic 1 tablet 03/27/23 09:00 03/27/23 08:15 Multivitamins Therapeutic Tab (*Bkc) PO 1 tablet DAILY MARIANO Administration Naloxone HCl 0.1 mg 03/26/23 12:15 Naloxone Hcl 0.4 Mg/Ml Vial IV PUSH Q2M PRN Opiate Reversal Ondansetron HCl 4 mg 08/15/23 12:15 Ondansetron Inj 4 Mg/2 Ml Vial IV PUSH Q4H PRN Nausea And Vomiting Propranolol HCl 20 mg 03/26/23 21:00 03/26/23 20:30 Propranolol Hcl 20 Mg Tablet PO 20 mg HS MARIANO Administration Vitamin D 1,000 units 03/27/23 09:00
[2023-03-27] MEDS: HYDROcodone/acetaminophen (*CRX) 5-325 MG TABLET 2 TAB PO (10:50)
== END 2023-03-27 14:52 | disposition home or self-care (01) ==
LOC: ANHSURGERY 07:59 → ANHOB2 16:55
PROVIDERS: Plastic Surgery; PCP Family Medicine; Visit Provider Surgery
PROC: (CPT 19307; principal; 2023-03-26 07:30)
PROC: (CPT 19340; 2023-03-26 07:30)
DX: C50.211 Malignant neoplasm of upper-inner quadrant of right female breast (principal); Z40.01 Encounter for prophylactic removal of breast
CPT/HCPCS: 19303; 38792; 19340; 15777 ×2; 88305; 88307; A9270; C1713; J0690; J1100; J1170; J1580; J2250; J2405; J2704; J2710; J3010; J7120

== ENCOUNTER 2023-04-23 08:18 | Outpatient (CLI) | payer BC, SELFPAY ==
[2023-04-23 09:36] LABS: Basophils Absolute Auto 0.1 K/mm3 (0.0-0.1); Basophils Percent Auto 1.2 % (0.2-1.2); Eosinophils Absolute Auto 0.1 K/mm3 (0-0.3); Eosinophils Percent Auto 1.4 % (0-4.4); Hematocrit 39.9 % (37.0-47.0); Hemoglobin 13.3 g/dL (12.0-15.0); Immature Granulocyte Absolute 0.01 K/mm3 (0.00-0.031); Immature Granulocyte Percent A 0.2 % (0-0.5); Lymphocytes Absolute Auto 1.77 K/mm3 (0.9-3.2); Lymphocytes Percent Auto 41.7 % (18.3-44.2); Mean Corpuscular HGB Conc 33.3 g/dl (32-36); Mean Corpuscular Hemoglobin 31.1 pg (26-34); Mean Corpuscular Volume 93.2 fl (80-100); Mean Platelet Volume 10.7 fl (7.4-10.4); Monocytes Absolute Auto 0.7 K/mm3 (0.1-0.6); Monocytes Percent Auto 15.3 % (2.6-8.5); Neutrophils Absolute Auto 1.7 K/mm3 (1.3-6.7); Neutrophils Percent Auto 40.2 % (45.5-73.1); Platelet Count Result 254 k/mm3 (150-375); Red Blood Count 4.28 M/mm3 (4.2-5.4); Red Cell Distribution Width 12.8 % (11.5-14.5); White Blood Count 4.2 K/mm3 (4.5-10.0)
[2023-04-23 09:42] LABS: Alanine Aminotransferase 61 U/L (6-35); Albumin Level 4.3 g/dL (3.5-5.1); Alkaline Phosphatase 81 U/L (38-126); Anion Gap 6 mmol/L (8-16); Aspartate Amino Transferase 37 U/L (14-36); Bilirubin,Total 0.8 mg/dL (0.2-1.3); Blood Urea Nitrogen 14 mg/dL (7-17); Calcium 8.9 mg/dL (8.4-10.2); Carbon Dioxide 24 mmol/L (22-30); Chloride 105 mmol/L (98-107); Estimated Glomerular Filt Rate > 60; Glucose 86 mg/dL (65-110); Sodium 135 mmol/L (137-145)
[2023-04-23 11:24] LABS: Potassium 4.2 mmol/L (3.4-5.0)
[2023-05-01 05:50] LABS: CA 15-3 12 U/mL (<32); FSH 8.1 mIU/mL (***); LH 4.2 mIU/mL (***)
== END 2023-04-23 08:19 | disposition home or self-care (01) ==
LOC: ANHLAB 08:20
PROVIDERS: PCP Family Medicine; Visit Provider Internal Medicine
DX: C50.111 Malignant neoplasm of central portion of right female breast (principal); Z17.0 Estrogen receptor positive status [ER+]
CPT/HCPCS: 36415; 80053; 83001; 83002; 85025; 86300

== ENCOUNTER 2023-06-24 09:01 | Outpatient (CLI) | payer BC, SELFPAY ==
[2023-06-24 09:40] LABS: Basophils Percent Auto 0.9 % (0.2-1.2); Eosinophils Percent Auto 0.6 % (0-4.4); Hematocrit 41.2 % (37.0-47.0); Immature Granulocyte Absolute 0.01 K/mm3 (0.00-0.031); Immature Granulocyte Percent A 0.2 % (0-0.5); Lymphocytes Percent Auto 40.9 % (18.3-44.2); Mean Corpuscular Hemoglobin 30.8 pg (26-34); Mean Corpuscular Volume 90.5 fl (80-100); Mean Platelet Volume 10.6 fl (7.4-10.4); Monocytes Absolute Auto 0.4 K/mm3 (0.1-0.6); Monocytes Percent Auto 9.3 % (2.6-8.5); Neutrophils Absolute Auto 2.2 K/mm3 (1.3-6.7); Neutrophils Percent Auto 48.1 % (45.5-73.1); Platelet Count Result 222 k/mm3 (150-375); Red Blood Count 4.55 M/mm3 (4.2-5.4); White Blood Count 4.6 K/mm3 (4.5-10.0)
[2023-06-24 16:46] LABS: Cholesterol 150 mg/dL (0-200); HDL Direct 61 mg/dL; Triglycerides 44 mg/dL (<150)
[2023-06-24 16:54] LABS: Alanine Aminotransferase 35 U/L (6-35); Albumin Level 4.5 g/dL (3.5-5.1); Alkaline Phosphatase 53 U/L (38-126); Anion Gap 9 mmol/L (8-16); Aspartate Amino Transferase 29 U/L (14-36); Bilirubin,Total 0.8 mg/dL (0.2-1.3); Blood Urea Nitrogen 14 mg/dL (7-17); Calcium 9.1 mg/dL (8.4-10.2); Carbon Dioxide 24 mmol/L (22-30); Chloride 108 mmol/L (98-107); Estimated Glomerular Filt Rate > 60; Glucose 81 mg/dL (65-110); Potassium 4.6 mmol/L (3.4-5.0); Sodium 141 mmol/L (137-145)
[2023-06-24 16:57] LABS: LDL Cholesterol Direct 64 mg/dL
[2023-06-27 14:32] LABS: CA 15-3 12 U/mL (<32)
== END 2023-06-24 09:02 | disposition home or self-care (01) ==
PROVIDERS: Physician Assistant; PCP Family Medicine; Visit Provider Internal Medicine Hematology & Oncology
DX: C50.111 Malignant neoplasm of central portion of right female breast (principal); Z13.220 Encounter for screening for lipoid disorders; Z17.0 Estrogen receptor positive status [ER+]
CPT/HCPCS: 36415; 80053; 80061; 85025; 86300

== ENCOUNTER 2023-09-23 08:38 | Outpatient (CLI) | payer BC, SELFPAY ==
[2023-09-23 08:59] LABS: Basophils Percent Auto 0.9 % (0.2-1.2); Eosinophils Percent Auto 0.9 % (0-4.4); Hematocrit 39.3 % (37.0-47.0); Hemoglobin 13.4 g/dL (12.0-15.0); Immature Granulocyte Absolute 0.01 K/mm3 (0.00-0.031); Immature Granulocyte Percent A 0.2 % (0-0.5); Lymphocytes Percent Auto 40.9 % (18.3-44.2); Mean Corpuscular HGB Conc 34.1 g/dl (32-36); Mean Corpuscular Hemoglobin 31.4 pg (26-34); Mean Platelet Volume 10.4 fl (7.4-10.4); Monocytes Absolute Auto 0.5 K/mm3 (0.1-0.6); Monocytes Percent Auto 9.7 % (2.6-8.5); Neutrophils Absolute Auto 2.2 K/mm3 (1.3-6.7); Neutrophils Percent Auto 47.4 % (45.5-73.1); Platelet Count Result 220 k/mm3 (150-375); Red Blood Count 4.27 M/mm3 (4.2-5.4); White Blood Count 4.6 K/mm3 (4.5-10.0)
[2023-09-23 14:15] LABS: Alanine Aminotransferase 31 U/L (6-35); Albumin Level 3.9 g/dL (3.5-5.1); Alkaline Phosphatase 47 U/L (38-126); Anion Gap 5 mmol/L (8-16); Aspartate Amino Transferase 27 U/L (14-36); Bilirubin,Total 0.8 mg/dL (0.2-1.3); Blood Urea Nitrogen 15 mg/dL (7-17); Calcium 9.1 mg/dL (8.4-10.2); Carbon Dioxide 27 mmol/L (22-30); Chloride 105 mmol/L (98-107); Estimated Glomerular Filt Rate > 60; Glucose 107 mg/dL (65-110); Potassium 4.3 mmol/L (3.4-5.0); Sodium 137 mmol/L (137-145)
[2023-09-26 07:30] LABS: CA 15-3 11 U/mL (<32)
== END 2023-09-23 08:39 | disposition home or self-care (01) ==
LOC: ANHLAB 08:41
PROVIDERS: PCP Family Medicine; Visit Provider Internal Medicine Hematology & Oncology
DX: C50.111 Malignant neoplasm of central portion of right female breast (principal); Z17.0 Estrogen receptor positive status [ER+]
CPT/HCPCS: 36415; 80053; 85025; 86300

== ENCOUNTER 2024-01-30 08:47 | Outpatient (CLI) | payer BC, SELFPAY ==
[2024-01-30 09:02] LABS: Hematocrit 40.8 % (37.0-47.0); Hemoglobin 13.9 g/dL (12.0-15.0); Immature Granulocyte Absolute 0.02 K/mm3 (0.00-0.031); Immature Granulocyte Percent A 0.5 % (0-0.5); Lymphocytes Absolute Auto 1.89 K/mm3 (0.9-3.2); Mean Corpuscular HGB Conc 34.1 g/dl (32-36); Mean Corpuscular Hemoglobin 31.2 pg (26-34); Mean Corpuscular Volume 91.5 fl (80-100); Mean Platelet Volume 10.2 fl (7.4-10.4); Monocytes Absolute Auto 0.6 K/mm3 (0.1-0.6); Monocytes Percent Auto 15.3 % (2.6-8.5); Neutrophils Absolute Auto 1.3 K/mm3 (1.3-6.7); Neutrophils Percent Auto 33.2 % (45.5-73.1); Platelet Count Result 260 k/mm3 (150-375); Red Blood Count 4.46 M/mm3 (4.2-5.4); Red Cell Distribution Width 13.1 % (11.5-14.5); White Blood Count 3.9 K/mm3 (4.5-10.0)
[2024-01-30 11:17] LABS: Alanine Aminotransferase 38 U/L (6-35); Albumin Level 4.5 g/dL (3.5-5.1); Alkaline Phosphatase 70 U/L (38-126); Anion Gap 5 mmol/L (4-12); Aspartate Amino Transferase 37 U/L (14-36); Bilirubin,Total 0.7 mg/dL (0.2-1.3); Blood Urea Nitrogen 17 mg/dL (7-17); Carbon Dioxide 26 mmol/L (22-30); Chloride 110 mmol/L (98-107); Estimated Glomerular Filt Rate > 60; Glucose 92 mg/dL (65-110); Potassium 4.5 mmol/L (3.4-5.0); Sodium 141 mmol/L (137-145)
[2024-01-31 12:03] LABS: CA 15-3 13 U/mL (<32)
== END 2024-01-30 08:48 | disposition home or self-care (01) ==
LOC: ANHLAB 08:49
PROVIDERS: PCP Family Medicine; Visit Provider Internal Medicine Hematology & Oncology
DX: C50.111 Malignant neoplasm of central portion of right female breast (principal); Z17.0 Estrogen receptor positive status [ER+]
CPT/HCPCS: 36415; 80053; 85025; 86300

== ENCOUNTER 2024-02-07 13:28 | Outpatient (CLI) | payer BC, SELFPAY ==
[2024-02-07 13:48] LABS: Kit Draw Collected
== END 2024-02-07 13:29 | disposition home or self-care (01) ==
LOC: ANHLAB 13:30
PROVIDERS: PCP Family Medicine; Visit Provider Internal Medicine Hematology & Oncology
DX: C50.111 Malignant neoplasm of central portion of right female breast (principal); Z17.0 Estrogen receptor positive status [ER+]
CPT/HCPCS: 36415

== ENCOUNTER 2024-03-27 09:45 | Outpatient (CLI) | payer BC, SELFPAY ==
--- NOTE | ~2024-03-27 | US_ITS ---
US abdomen limited INDICATION: Gallbladder polyp PROCEDURE: Realtime right upper abdominal ultrasound. COMPARISON: No prior studies for comparison. FINDINGS: The pancreas is normal without focal mass or pancreatic ductal dilation. Liver echotexture is normal without focal mass or intrahepatic biliary dilatation. There is normal directional flow i n the portal vein. Stable 5 mm gallbladder polyp. No biliary dilatation. No sonographic Lopez's sign. IMPRESSION: 1: Stable gallbladder polyp measuring 5 mm. Reviewed, dictated and finalized at location B.
== END 2024-03-27 09:46 ==
PROVIDERS: PCP Emergency Medicine; Visit Provider Emergency Medicine
DX: K82.4 Cholesterolosis of gallbladder (principal)
CPT/HCPCS: 76705

== ENCOUNTER 2024-04-03 09:56 | Outpatient (CLI) | payer BC, SELFPAY ==
--- NOTE | ~2024-04-03 | MR_ITS ---
MR breast BI wo/w con 04/03/2024 12:17 CDT INDICATION: History of breast cancer. Status post bilateral mastectomy with reconstruction. TECHNIQUE: MRI of the breasts perform using standard protocol pre-and post IV contrast with the follo wing sequences: Axial T2 STIR, axial T1, axial vibrant T1 with fat suppression precontrast and multip hasic postcontrast. 14 cc MultiHance administered intravenously. COMPARISON: Comparison to multiple prior studies sequentially, with oldest reviewed study dated 12/2022. FINDINGS: No evidence for implant rupture in either breast. There are no abnormalities on the precont rast sequences. There is minimal background parenchymal enhancement. No enhancing lesions following contrast administration. No areas of enhancement meeting threshold criteria on CAD analysis. No kendell dence of signal abnormalities in the axillary or internal mammary node distributions. LEFT BREAST: No signal abnormalities on precontrast sequences. There is minimal background parenchym al enhancement. No enhancing lesions following contrast administration. No areas of enhancement me eting threshold criteria on CAD analysis. No evidence of signal abnormalities in the axillary or in ternal mammary node distributions.] IMPRESSION: 1: Right breast: Negative. No evidence of malignancy. BI-RADS category 1. 2: Left breast: Negative. No evidence of malignancy. BI-RADS category 1. Follow-up MRI may be useful for supplementing ultrasound evaluation as clinically indicated. Reviewed, dictated and finalized at location B. IMPRESSION: 1: Right breast: Negative. No evidence of malignancy. BI-RADS category 1. 2: Left breast: Negative. No evidence of malignancy. BI-RADS category 1. Follow-up MRI may be useful for supplementing ultrasound evaluation as clinical ly indicated.
== END 2024-04-03 09:57 | disposition home or self-care (01) ==
PROVIDERS: PCP Emergency Medicine; Visit Provider Physician Assistant Surgical
DX: Z90.13 Acquired absence of bilateral breasts and nipples (principal); C50.911 Malignant neoplasm of unspecified site of right female breast; Z98.890 Other specified postprocedural states
CPT/HCPCS: 77049; A9577; C8908

== ENCOUNTER 2024-06-03 08:48 | Outpatient (CLI) | payer BC, SELFPAY ==
[2024-06-03 10:19] LABS: Basophils Percent Auto 0.9 % (0.2-1.2); Eosinophils Absolute Auto 0.1 K/mm3 (0-0.3); Eosinophils Percent Auto 1.1 % (0-4.4); Hemoglobin 14.2 g/dL (12.0-15.0); Immature Granulocyte Absolute 0.01 K/mm3 (0.00-0.031); Immature Granulocyte Percent A 0.2 % (0-0.5); Lymphocytes Percent Auto 43.7 % (18.3-44.2); Mean Corpuscular HGB Conc 33.8 g/dl (32-36); Mean Corpuscular Hemoglobin 30.7 pg (26-34); Mean Corpuscular Volume 90.9 fl (80-100); Mean Platelet Volume 11.2 fl (7.4-10.4); Monocytes Absolute Auto 0.5 K/mm3 (0.1-0.6); Monocytes Percent Auto 10.9 % (2.6-8.5); Neutrophils Percent Auto 43.2 % (45.5-73.1); Platelet Count Result 246 k/mm3 (150-375); Red Blood Count 4.62 M/mm3 (4.2-5.4); Red Cell Distribution Width 12.9 % (11.5-14.5); White Blood Count 4.6 K/mm3 (4.5-10.0)
[2024-06-03 11:15] LABS: Alanine Aminotransferase 27 U/L (6-35); Albumin Level 4.3 g/dL (3.5-5.1); Alkaline Phosphatase 48 U/L (38-126); Anion Gap 9 mmol/L (4-12); Aspartate Amino Transferase 24 U/L (14-36); Bilirubin,Total 0.9 mg/dL (0.2-1.3); Blood Urea Nitrogen 19 mg/dL (7-17); Calcium 9.1 mg/dL (8.4-10.2); Carbon Dioxide 24 mmol/L (22-30); Chloride 105 mmol/L (98-107); Estimated Glomerular Filt Rate > 60; Glucose 96 mg/dL (65-110); Potassium 4.3 mmol/L (3.4-5.0); Sodium 138 mmol/L (137-145)
[2024-06-05 06:19] LABS: CA 15-3 15 U/mL (<32)
== END 2024-06-03 08:49 | disposition home or self-care (01) ==
LOC: ANHLAB 08:51
PROVIDERS: PCP Emergency Medicine; Visit Provider Internal Medicine Hematology & Oncology
DX: C50.111 Malignant neoplasm of central portion of right female breast (principal); Z17.0 Estrogen receptor positive status [ER+]
CPT/HCPCS: 36415; 80053; 85025; 86300

== ENCOUNTER 2024-10-02 08:42 | Outpatient (CLI) | payer BC, SELFPAY ==
[2024-10-02 08:51] LABS: Basophils Absolute Auto 0.1 K/mm3 (0.0-0.1); Basophils Percent Auto 0.9 % (0.2-1.2); Eosinophils Percent Auto 0.7 % (0-4.4); Hematocrit 43.7 % (37.0-47.0); Hemoglobin 14.9 g/dL (12.0-15.0); Immature Granulocyte Absolute 0.02 K/mm3 (0.00-0.031); Immature Granulocyte Percent A 0.4 % (0-0.5); Lymphocytes Absolute Auto 2.08 K/mm3 (0.9-3.2); Lymphocytes Percent Auto 38.3 % (18.3-44.2); Mean Corpuscular HGB Conc 34.1 g/dl (32-36); Mean Corpuscular Volume 90.9 fl (80-100); Mean Platelet Volume 10.1 fl (7.4-10.4); Monocytes Absolute Auto 0.7 K/mm3 (0.1-0.6); Monocytes Percent Auto 13.1 % (2.6-8.5); Neutrophils Absolute Auto 2.5 K/mm3 (1.3-6.7); Neutrophils Percent Auto 46.6 % (45.5-73.1); Platelet Count Result 255 k/mm3 (150-375); Red Blood Count 4.81 M/mm3 (4.2-5.4); Red Cell Distribution Width 12.5 % (11.5-14.5); White Blood Count 5.4 K/mm3 (4.5-10.0)
--- OUTSIDE RECORDS SUMMARY | 2024-10-02 08:52 | XMS_ITS | Clinical Summary ---
[facility] Organization [facility] Address [address] [place] [address] Care Team Providers Care Agricultural Inspector Name Role Phone Severino Hayes MD Primary Care Provider [phone] Allergies No known active allergies Medications PROPRANOLOL-HYDR OCHLOROTHIAZID ORAL Take by mouth. Active ciprofloxacin HCl (CIPRO) 500 mg tablet Take 500 mg by mouth 2 times daily. 02/06/2024 Active tamoxifen (NOLVADEX) 20 mg tablet TAKE 1 TABLET BY MOUTH EVERY DAY 90 Tablet 3 06/18/2024 Active Active Problems No known active problems Encounters Date Type Department Care Team Description 2024 External Device Data ST[facility] ABSTRACTION Provider, Abstract 09/03/2024 External Device Data ST[facility] ABSTRACTION Provider, Abstract from Last 3 Months Family History Medical History Relation Name Comments Heart Disease Brother Kidney Cancer Father Relation Name Status Comments Brother Daughter 1 Alive Daughter 2 Alive Father Alive Mother Alive Sister Alive Social History Tobacco Use Types Packs/Day Years Used Date Smoking Tobacco: Never Smokeless Tobacco: Never Tobacco Cessation:Counseling Given: Not Answered Alcohol Use Standard Drinks/Week Comments Yes 0 (1 standard drink = 0.6 oz pur e alcohol) osscaional Comments Unknown Sex and Gender Information Value Date Recorded Sex Assigned at Not on file Legal Sex Female 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 Gender Identity Not on file Sexual Orientation Not on file Last Filed Vital Signs Vital Sign Reading Time Taken Comments Blood Pressure 128/81 06/10/2024 10:17 AM CDT Pulse 77 06/10/2024 10:17 AM CDT Temperature 36.7 C (98 F) 06/10/2024 10:17 AM CDT Respiratory Rate 16 06/10/2024 10:1 7 AM CDT Oxygen Saturation 99% 06/10/2024 10: 17 AM CDT Inhaled Oxygen Concentration - - Weight 69.3 kg (152 lb 12.8 oz) 024 10:17 AM CDT Height - - Body Mass Index - - Plan of Treatment Upcoming Encounters Date Type Department Care Team (Late st Contact Info) Description 10/09/2024 12:15 PM INSPECTOR BALANCE TRUING Office Visit [facility] [address] [facility] [address] [place] [address] Matthew Blount MD [address] [facility] [address] [place] [address] Health Maintenance Due Date Last Done Comments Pre-Diabetes and Diabetes Screening 1976 DTAP/TDAP/TD VACCINES (1 - Tdap) 1995 HEPATITIS B VACCINES (1 of 3 - 19+ 3-dose series) 1995 BREAST CANCER SCREENING 2016 COLORECTAL SCREENING 2021 Colorectal Cancer Screening 2021 FIT-DNA Q 3 years 2021 FIT/FOBT Q 1 year 2021 Flex Sig/CT Colonography Q 5 years 2021 INFLUENZA VACCINE (#1) 2024 Preventative Visit- Commercial 08/12/2024 1 , 05/22/2022, 03/09/2020 CERVICAL CANCER SCREENING 06/07/2026 06/07/2023, 06/2022 Insurance [facility] BLUE ACCESS CHOICE Care Teams Agricultural Inspector Relationship Specialty Start Date End Date Severino Hayes MD [address] [place] [address] PCP - General Family Practice 06/10/24
--- OUTSIDE RECORDS SUMMARY | 2024-10-02 08:53 | XMS_ITS | Encounter Summary ---
Author Organization [facility] Address [address] [place] [address] Care Team Providers Care Supervisor Knitting Name Role Phone Severino Hayes MD Primary Care Provider [phone] Encounter Details Date Type Department Care Team (Late st Contact Info) Description 2024 External Device Data [facility] ABSTRACTION Provider, Abstract NO ADDRESS ON FILE Social History Tobacco Use Types Packs/Day Years Used Date Smoking Tobacco: Never Smokeless Tobacco: Never Alcohol Use Standard Drinks/Week Comments Yes 0 (1 standard drink = 0.6 oz pur e alcohol) osscaional Comments Unknown Sex and Gender Information Value Date Recorded Sex Assigned at Not on file Legal 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 Gender Identity Not on file Sexual Orientation Not on file documented as of this encounter Plan of Treatment Upcoming Encounters Date Type Department Care Team (Late st Contact Info) Description 10/09/2024 12:15 PM GLASS BLOWING LATHE OPERATOR Office Visit [facility] Oncology and Hematology - Brendan [address] [facility] [address] [place] [address] Matthew Blount MD [address] [facility] [address] [place] [address] documented as of this encounter Visit Diagnoses Not on filedocumented in this encounter Care Teams Supervisor Knitting Relationship Specialty Start Date End Date Severino Hayes MD [address] [place] [address] PCP - General Family Practice 06/10/24 documented as of this encounter
--- OUTSIDE RECORDS SUMMARY | 2024-10-02 08:53 | XMS_ITS | Continuity of Care Document ---
Author Organization [facility] Address [address] [place] [address] [place] [address] Phone Care Team Providers Care Betting Agency Counter Clerk Name Role Phone Severino Hayes MD Unavailable Unavailable Allergies, Adverse Reactions, Alerts Substance Reaction Status Criticality No Known Allergies Active No Inform ation Medications Medication Instructions Dosage Effective Dates (start - stop) Status Comments tamoxifen 20 mg tablet take 1 tablet by oral route every day 20 MG - Active Procedures Procedure Date OFFICE/OUTPATIENT VISIT, EST OFFICE/OUTPATIENT VISIT, EST OFFICE/OUTPATIENT VISIT, EST PREV VISIT, EST, AGE 18-39 OFFICE/OUTPATIENT VISIT, EST OFFICE/OUTPATIENT VISIT, EST PREV VISIT, EST, AGE 18-39 OFFICE/OUTPATIENT VISIT, EST OFFICE/OUTPATIENT VISIT, EST OFFICE/OUTPATIENT VISIT, EST Advance Directives Directive Yes / No Effective Date File Name No Information Encounters Encounter Description Practice Location Reason(s) For Visit Diagnoses Date Provider Providers Copied on Encounter OFFICE/OUTPA TIENT VISIT, EST [facility], [address] [place], [address], [place] tel:[phone] [facility] gallbladder polyp1 (chief complaint)LF T (chief complaint)br east CA1 (chief complaint)we ight gain1 (chief complaint) Abnormal weight gainCholesterolos is of gallbladderLiver diseaseEncounter for screening for malignant neoplasm of colonAcquired absence of bilateral breasts and nipples 4 [address]. [address], [place], [place], [address] , [place]. tel:[phone] Referring Provider: Severino Hayes, [address], [place], [place], [address]. tel:[phone] OFFICE/OUTPA TIENT VISIT, EST [facility], [address], [place], [place], [address], [place] tel:[phone] [facility] blue toes (chief complaint) Raynaud's Syndrome 5 [address]. [address], [place], [place], [address] , [place]. tel:[phone] Referring Provider: Severino Hayes, [address], [place], [place], [address]. tel:[phone] OFFICE/OUTPA TIENT VISIT, [facility], [address], [place], [place], [address], [place] tel:[phone] [facility] blue toe (chief complaint) Raynaud's SyndromeOther symptoms involving skin and integumentary tissuesHEMATURIA NOS 5 [address], [place], [place], [address] , [place]. tel:[phone] Referring Provider: Katya [address], [place], [place], [address]. tel:[phone] [facility], [address], [place], [place], [address], [place] tel:[phone] [facility] Medicine HEMATURIA NOS 4 [address]. [address], [place], [place], [address] , [place]. tel:[phone] Referring Provider: Severino Hayes, [address], [place], [place], [address]. tel:[phone] PREV VISIT, EST, AGE 18-39 [facility], [address], [place], [place], [address], [place] tel:[phone] [facility] Physical (chief complaint) Routine Medical ExamHeadacheRouti ne Medical Exam 4 [address], [place], [place], [address] , [place]. tel:[phone] Referring Provider: Severino Hayes, [address], [place], [place], [address]. tel:[phone] OFFICE/OUTPA TIENT VISIT, EST [facility], [address], [place], [place], [address], [place] tel:[phone] [facility] Medicine Headache (chief complaint) Headache 3 [address]. [address], [address], [place], [address] , [place]. tel:[phone] Referring Provider: Severino Hayes, [address], [place], [place], [address]. tel:[phone] PREV VISIT, EST, AGE 18-39 [facility], [address], [place], [place], [address], [place] tel:[phone] [facility] Medicine Physical (chief complaint) Routine Medical ExamRoutine Medical Exam 3 [address], [place], [place], [address] , [place]. tel:[phone] Referring Provider: Katya o[address]rn [address], [place], [place], [address]. tel:[phone] OFFICE/OUTPA TIENT VISIT, EST [facility], [address], [place], [place], [address], [place] tel:[phone] [facility] Medicine sinus (chief complaint) Acute maxillary sinusitis 3 [address], [place], [place], [address] , [place]. tel:[phone] Referring Provider: Katya [address], [place], [place], [address]. tel:[phone] OFFICE/OUTPA TIENT VISIT, [facility], [address], [place], [place], [address], tel:[phone] [facility] foot pain (chief complaint) Pain in joint involving lower legPlantar fascial fibromatosis 3 [address]. [address], [place], [place], [address] , . [phone] Referring Provider: Severino Hayes, [address], [place], [place], [address]. tel:[phone] OFFICE/OUTPA TIENT VISIT, EST [facility], [address], [place], [place], [address], [place] tel:[phone] [facility] parotid gland infection (chief complaint)hy poglycemia (chief complaint) Hypoglycemia, unspecifiedSialoa denitis 3 Fred[address] Haq. [address] [facility] [address], [place], [place], [address] , [place]. [phone] Family History Family Member Type Diagnosis Age At Onset Father Problem (finding) Melanoma Mother Problem (finding) Migraines Father Problem (finding) Coronary artery disease 65 Payers Payer name Insurance type Covered green party ID Authoriza tion(s) No Information Social History Type Description Quantity Date Captured Comments Alcohol Use Details beer & wine 1 glass occasionally Caffeine Use Details coffee 1 cup per day Tobacco Use Status No Information Smoking Status Never smoker Non-Smoking Tobacco Use Details : No Details Available : No Details Available Sex Female Vital Signs Date / Time: Height Weight BMI Pulse Rate Blood Pressure Temperature Respiratory Rate Body Surface Area Head Circumference BMI percentile Pulse Ox Inhaled Ox 10:46 AM 63.00 in 153.20 lbs 27.1 4 kg/m eter (2) 73 /min 121/77 mm[Hg] 98.3 F 16 /min Chief Complaint And Reason For Visit From encounter dated '03/23/2024 10:45'. gallbladder polyp1 (chief complaint). Description: Pt has 5 mm gallbladder polyp on ultrasound lastyear Pt denies any abd pain LFT (chief complaint). Description: Pt has mildly high LFT Pt denies any abd pain or jaundice. breast CA1 (chief complaint). Description: Pt has right breast CA and she is s/p bilateral mastectomy and she sees breast specialist, oncology and plastic Pt is on tamoxifen. Pt will do MRI of breastsoon weight gain1 (chief complaint). Description: Pt gained 15 pounds during last 10 years Pt is workingon weight loss Plan Of Treatment Date Type Action Status Goal Tobacco cessation counseling completed Referral Ordered: US EXAM OF ABDOMEN, LIMITED, GALLBLADDER ordered Referral Ordered: Vascular Surgery (related to Discoloration of skin) ordered Referral Ordered: US ARTERIAL ANKLE/BRACIAL IND ordered Referral Ordered: Referral: Vascular Surgery. ordered Referral Ordered: HEEL/OSCALCIS XRAY ordered History Of Present Illness Encounter Date Complaint History Of Prese nt Illness gallbladder polyp1 Pt has 5 mm g allbladder polyp on ultrasound last year Pt denies any abd pain LFT Pt has mildly hi gh LFT Pt denies any abd pain or jaundice. breast CA1 Pt has right noemi ast CA and she is s/p bilateral mastectomy and she sees breast specialist, oncology and plastic Pt is on tamoxifen. Pt will do MRI of breast soon weight gain1 Pt gained 15 yusuf nds during last 10 years Pt is working on weight loss Instructions Date Instruction Additional Infor mation Patient instructed o n use of saline sprays. Related to Acute maxillary sinusitis Instructions given f or sinus irrigation. Related to Acute maxillary sinusitis Assessments Type Assessment Date assessment Abnormal weight gain assessment Cholesterolosis of gallbladder A assessment Liver disease assessment Encounter for screening for sheela gnant neoplasm of colon assessment Acquired absence of bilateral br easts and nipples Mental Status Date Cognitive Assessment Orientation - [place] ed to time, place, person, situation.
--- OUTSIDE RECORDS SUMMARY | 2024-10-02 08:53 | XMS_ITS | Encounter Summary ---
Author Organization [facility] Address [address] [place] [address] Care Team Providers Care Production Support Consultant Name Role Phone Severino Hayes MD Primary Care Provider Encounter Details Date Type Department Care Team (Late st Contact Info) Description 11/01/2015 Nurse Triage Report [facility] ABSTRACTION Maria De Jesus Jaramillo Social History Tobacco Use Types Packs/Day Years Used Date Smoking Tobacco: Never Assessed Comments Unknown Sex and Gender Information Value Date Recorded Sex Assigned at Not on file Legal Sex Female 5:18 PM EXCEL ANALYST Gender Identity Not on file Sexual Orientation Not on file documented as of this encounter Progress Notes * Maria De Jesus Jaramillo - 11/01/2015 9:19 AM CDT CHART DOCUMENTATION ONLY Call Type: Triage Call Presenting Problem: I am looking for a urologist. <<<<<<<< TRIAGE NOTE >>>>>>>> <<<<<<<< TRIAGE/OUTCOME >>>>>>>> [facility]eline [facility] Recommended Disposition: Website Assistance Original Inclination: Self Management Intended Action: Self Management Physician Contacted: No Patient instructed how to find a [facility] provider ? YES documented in this encounter Plan of Treatment Upcoming Encounters Date Type Department Care Team (Late st Contact Info) Description 10/09/2024 12:15 PM EXCEL ANALYST Office Visit [facility] Oncology and Hematology - Brendan [address] [facility] [address] [place] [address] Matthew Blount MD [address] [facility] [address] [place] [address] documented as of this encounter Visit Diagnoses Not on filedocumented in this encounter Care Teams Production Support Consultant Relationship Specialty Start Date End Date Severino Hayes MD [address] [place] [address] PCP - General Family Practice 06/10/24 documented as of this encounter
[2024-10-02 09:56] LABS: Alanine Aminotransferase 42 U/L (6-35); Albumin Level 4.6 g/dL (3.5-5.1); Alkaline Phosphatase 53 U/L (38-126); Anion Gap 13 mmol/L (4-12); Aspartate Amino Transferase 38 U/L (14-36); Blood Urea Nitrogen 21 mg/dL (7-17); Calcium 9.5 mg/dL (8.4-10.2); Carbon Dioxide 23 mmol/L (22-30); Chloride 105 mmol/L (98-107); Estimated Glomerular Filt Rate > 60; Glucose 107 mg/dL (65-110); Potassium 4.5 mmol/L (3.4-5.0); Sodium 141 mmol/L (137-145)
[2024-10-03 06:09] LABS: CA 15-3 12 U/mL (<32)
== END 2024-10-02 08:43 | disposition home or self-care (01) ==
PROVIDERS: PCP Emergency Medicine; Visit Provider Internal Medicine Hematology & Oncology
DX: C50.111 Malignant neoplasm of central portion of right female breast (principal); Z17.0 Estrogen receptor positive status [ER+]
CPT/HCPCS: 36415; 80053; 85025; 86300

== ENCOUNTER 2025-01-27 08:22 | Outpatient (CLI) | payer BC, SELFPAY ==
--- OUTSIDE RECORDS SUMMARY | 2025-01-27 08:34 | XMS_ITS | Continuity of Care Document ---
Author Organization [facility] Address [address] [place] [address] [place] [address] Phone Care Team Providers Care Ap Operator Name Role Phone Severino Hayes MD Unavailable [...] Copied on Encounter OFFICE/OUTPA TIENT VISIT, EST [facility], [address] [place], [address], [place] tel:[phone] [facility] gallbladder polyp1 (chief complaint)LF T (chief complaint)br east CA1 (chief complaint)we ight gain1 (chief complaint) Abnormal weight gainCholesterolos is of gallbladderLiver diseaseEncounter for screening for malignant neoplasm of colonAcquired absence of bilateral breasts and nipples 4 Fred[address]. [address], [place], [place], [address] , [place]. tel:[phone] Referring Provider: Severino Hayes, [address], [place], [place], [address]. tel:[phone] OFFICE/OUTPA TIENT VISIT, EST [facility], [address], [place], [place], [address], [place] tel:[phone] [facility] blue toes (chief complaint) Raynaud's Syndrome 5 Fred[address]. [address], [place], [place], [address] , [place]. tel:[phone] Referring Provider: Severino Hayes, [address], [place], [place], [address]. tel:[phone] OFFICE/OUTPA TIENT VISIT, [facility], [address], [place], [place], [address], [place] tel:[phone] [facility] blue toe (chief complaint) Raynaud's SyndromeOther symptoms involving skin and integumentary tissuesHEMATURIA NOS 5 [address], [place], [place], [address] , [place]. tel:[phone] Referring Provider: Katya [address], [place], [place], [address]. tel:[phone] [facility], [address], [place], [place], [address], [place] tel:[phone] [facility] Medicine HEMATURIA NOS 4 [address]q. [address], [address], [place], [place], [address] , [place]. tel:[phone] Referring Provider: Severino Hayes, [address], [place], [place], [address]. tel:[phone] PREV VISIT, EST, AGE 18-39 [facility], [address], [place], [place], [address], [place] tel:[phone] [facility] Physical (chief complaint) Routine Medical ExamHeadacheRouti ne Medical Exam 4 Fred[address]q. [address], [place], [place], [address] , [place]. tel:[phone] Referring Provider: Severino Hayes, [address], [place], [place], [address]. tel:[phone] OFFICE/OUTPA TIENT VISIT, EST [facility], [address], [place], [place], [address], [place] tel:[phone] [facility] Medicine Headache (chief complaint) Headache 3 [address]. [address], [place], [place], [address] , [place]. tel:[phone] Referring Provider: Severino Hayes, [address], [place], [place], [address]. tel:[phone] PREV VISIT, EST, AGE 18-39 [facility], [address], [place], [place], [address], [place] tel:[phone] [facility] Medicine Physical (chief complaint) Routine Medical ExamRoutine Medical Exam 3 [address], [place], [place], [address] , [place]. tel:[phone] Referring Provider: Katya [address], [place], [place], [address]. tel:[phone] OFFICE/OUTPA TIENT VISIT, EST [facility] Medicine, [address], [place], [place], [address], [place] tel:[phone] [facility] Medicine sinus (chief complaint) Acute maxillary sinusitis 3 [address], [place], [place], [address] , [place]. tel:[phone] Referring Provider: Katya [address], [place], [place], [address]. tel:[phone] OFFICE/OUTPA TIENT VISIT, [facility], [address], [place], [place], [address], tel:[phone] [facility] foot pain (chief complaint) Pain in joint involving lower legPlantar fascial fibromatosis 3 Fred[address], [place], [place], [address] , . [phone] Referring Provider: Severino Hayes, [address], [place], [place], [address]. tel:[phone] OFFICE/OUTPA TIENT VISIT, EST [facility], [address], [place], [place], [address], [place] tel:[phone] [facility] parotid gland infection (chief complaint)hy poglycemia (chief complaint) Hypoglycemia, unspecifiedSialoa denitis 3 Fred[address] Haq. [address] [facility] [address], [place], [place], [address] , [place]. [phone] Family History Family Member Type Diagnosis Age At Onset Father Problem (finding) Melanoma Mother Problem (finding) Migraines Father Problem (finding) Coronary artery disease 65 Payers Payer name Insurance type Covered republican ID Authoriza tion(s) No Information Social History [...] Date Complaint History Of Prese nt Illness weight gain1 Pt gained 15 yusuf nds during last 10 years Pt is working on weight loss breast CA1 Pt has right noemi ast CA and she is s/p bilateral mastectomy and she sees breast specialist, oncology and plastic Pt is on tamoxifen. Pt will do MRI of breast soon LFT Pt has mildly hi gh LFT Pt denies any abd pain or jaundice. gallbladder polyp1 Pt has 5 mm g allbladder polyp on ultrasound last year Pt denies any abd pain Instructions Date Instruction Additional Infor mation Patient [...] Mental Status Date Cognitive Assessment Orientation - [place] ed to time, place, person, situation.
--- OUTSIDE RECORDS SUMMARY | 2025-01-27 08:34 | XMS_ITS | Clinical Summary ---
[facility] Organization [facility] Address [address] [place] [address] [place] [address] Care Team Providers Care Home Health Assistant Name Role Phone Severino Hayes MD Primary Care Provider [phone] Allergies No known active allergies Medications PROPRANOLOL-HYDR OCHLOROTHIAZID ORAL Take by mouth. Active ciprofloxacin HCl (CIPRO) 500 mg tablet Take 500 mg by mouth 2 times daily. 02/06/2024 Active tamoxifen (NOLVADEX) 20 mg tablet TAKE 1 TABLET BY MOUTH EVERY DAY 90 Tablet 3 06/18/2024 Active Active Problems No known active problems Encounters Date Type Department Care Team Description 12/31/2024 External Device Data [facility] Provider, Abstract 12/31/2024 External Device Data [facility] Provider, Abstract 12/30/2024 External Device Data [facility] Provider, Abstract 11/24/2024 External Device Data [facility] Provider, Abstract 10/28/2024 External Device Data [facility] Provider, Abstract [...] on file Legal Sex Female 5:18 PM CMO Gender Identity Not on file Sexual Orientation Not on file Last Filed Vital Signs Vital Sign Reading Time Taken Comments Blood Pressure 112/79 10/09/2024 12:05 PM CMO Pulse 88 10/09/2024 12:05 PM CMO Temperature 36.3 C (97.4 F) 10/09/2024 12:05 PM CMO Respiratory Rate 16 10/09/2024 12:05 PM CMO Oxygen Saturation 90% 10/09/2024 12:05 PM CMO Inhaled Oxygen Concentration - - Weight 71.4 kg (157 lb 6.4 oz) 10/09/2024 12:05 PM CMO Height - - Body Mass Index - - Plan of Treatment Upcoming Encounters Date Type Department Care Team (Late st Contact Info) Description 02/05/2025 11:45 AM CDT Office Visit [facility] Oncology and Hematology [facility] [address] [facility] [address] [place] [address] Matthew Blount MD [address] [facility] [address] [place] [address] Health Maintenance Due Date Last Done Comments Pre-Diabetes and Diabetes Screening 1976 DTAP/TDAP/TD VACCINES (1 - Tdap) 1995 HEPATITIS B VACCINES (1 of 3 - 19+ 3-dose series) 1995 HPV/Cotest (21-29) 1997 HPV/Cotest (30-65) 2006 COLORECTAL SCREENING 2021 Colorectal Cancer Screening 2021 FIT-DNA Q 3 years 2021 FIT/FOBT Q 1 year 2021 Flex Sig/CT Colonography Q 5 years 2021 INFLUENZA VACCINE (#1) 2024 Preventative Visit- Commercial 08/12/2024 1 , 05/22/2022, 03/09/2020 CERVICAL CANCER SCREENING 06/07/2026 PAP SMEAR 06/07/2026 06/07/2023, 05/22/2022 Insurance [facility] BLUE ACCESS CHOICE Care Teams Home Health Assistant Relationship Specialty Start Date End Date Severino Hayes MD [facility] [place] [address] PCP - General Family Practice 06/10/24
--- OUTSIDE RECORDS SUMMARY | 2025-01-27 08:34 | XMS_ITS | Encounter Summary ---
Author Organization [facility] Address 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 <<<<<<<< TRIAGE NOTE >>>>>>>> <<<<<<<< TRIAGE/OUTCOME >>>>>>>> Guideline [facility] Recommended Disposition: Website Assistance Original Inclination: Self Management Intended Action: Self Management Physician Contacted: No Patient instructed how to find a [facility] provider ? YES documented in this encounter Plan of Treatment Upcoming Encounters Date Type Department Care Team (Late st Contact Info) Description 02/05/2025 11:45 AM CDT Office Visit [facility] Oncology and Hematology - [place] [address] [facility] [address] [place] [address] Matthew Blount MD [address] [facility] [address] [place] [address] documented as of this encounter Visit Diagnoses Not on filedocumented in this encounter Care Teams Barge Pilot Relationship Specialty Start Date End Date Severino Hayes MD [address] [place] [address] PCP - General Family Practice 06/10/24 documented as of this encounter
[2025-01-27 08:39] LABS: Basophils Absolute Auto 0.1 K/mm3 (0.0-0.1); Basophils Percent Auto 1.5 % (0.2-1.2); Eosinophils Absolute Auto 0.1 K/mm3 (0-0.3); Eosinophils Percent Auto 1.3 % (0-4.4); Hematocrit 43.2 % (37.0-47.0); Hemoglobin 14.4 g/dL (12.0-15.0); Immature Granulocyte Absolute 0.01 K/mm3 (0.00-0.031); Immature Granulocyte Percent A 0.2 % (0-0.5); Lymphocytes Absolute Auto 2.02 K/mm3 (0.9-3.2); Lymphocytes Percent Auto 42.4 % (18.3-44.2); Mean Corpuscular HGB Conc 33.3 g/dl (32-36); Mean Corpuscular Hemoglobin 30.8 pg (26-34); Mean Corpuscular Volume 92.5 fl (80-100); Mean Platelet Volume 10.6 fl (7.4-10.4); Monocytes Absolute Auto 0.7 K/mm3 (0.1-0.6); Monocytes Percent Auto 13.9 % (2.6-8.5); Neutrophils Absolute Auto 1.9 K/mm3 (1.3-6.7); Neutrophils Percent Auto 40.7 % (45.5-73.1); Platelet Count Result 230 k/mm3 (150-375); Red Blood Count 4.67 M/mm3 (4.2-5.4); Red Cell Distribution Width 12.7 % (11.5-14.5); White Blood Count 4.8 K/mm3 (4.5-10.0)
[2025-01-27 10:07] LABS: Alanine Aminotransferase 42 U/L (6-35); Albumin Level 4.6 g/dL (3.5-5.1); Alkaline Phosphatase 48 U/L (38-126); Anion Gap 9 mmol/L (4-12); Aspartate Amino Transferase 62 U/L (14-36); Bilirubin,Total 0.9 mg/dL (0.2-1.3); Blood Urea Nitrogen 20 mg/dL (7-17); Calcium 9.4 mg/dL (8.4-10.2); Carbon Dioxide 23 mmol/L (22-30); Chloride 106 mmol/L (98-107); Estimated Glomerular Filt Rate > 60; Glucose 106 mg/dL (65-110); Potassium 4.9 mmol/L (3.4-5.0); Sodium 138 mmol/L (137-145); Total Protein 8.3 g/dL (6.3-8.2)
[2025-01-28 06:08] LABS: CA 15-3 13 U/mL (<32)
== END 2025-01-27 08:23 | disposition home or self-care (01) ==
LOC: ANHLAB 08:23
PROVIDERS: PCP Emergency Medicine; Visit Provider Internal Medicine Hematology & Oncology
DX: C50.111 Malignant neoplasm of central portion of right female breast (principal); Z17.0 Estrogen receptor positive status [ER+]
CPT/HCPCS: 36415; 80053; 85025; 86300

== ENCOUNTER 2025-01-27 09:17 | Outpatient (CLI) | payer BC, SELFPAY ==
--- NOTE | ~2025-01-27 | CT_ITS ---
EXAMINATION: CT sinus wo con DATE: 01/27/2025 09:35 INDICATION: Chronic sinusitis TECHNIQUE: Computed tomography (CT) of the paranasal sinuses was performed without intravenous contra st. The dose-length product was 294.16 mGy-cm. Automated exposure control and iterative reconstructio n technique were employed. COMPARISON: CT head dated 03/17/2010 FINDINGS: There is no significant mucosal thickening. No air-fluid levels. No mucoperiosteal reaction . Rightward nasal septal deviation. Ostiomeatal units are patent. Mastoids are pneumatized. IMPRESSION: 1. No significant sinus disease. Reviewed, dictated and finalized at location A.
== END 2025-01-27 09:18 | disposition home or self-care (01) ==
PROVIDERS: PCP Emergency Medicine; Visit Provider Otolaryngology Otolaryngology/Facial Plastic Surgery
DX: J32.9 Chronic sinusitis, unspecified (principal); R09.81 Nasal congestion
CPT/HCPCS: 70486

== ENCOUNTER 2025-02-17 09:09 | Outpatient (CLI) | payer BC, SELFPAY ==
--- NOTE | ~2025-02-17 | US_ITS ---
Abdominal Sonogram: Real-time sonographic imaging of the abdomen was performed. Clinical History: Liver disease Findings: The liver appears normal with no evidence of mass lesion or bile duct dilatation. Main por lucas vein demonstrates normal direction of flow. The spleen is normal in size without evidence of foca l lesion. The gallbladder is well distended, and demonstrates 4 mm gallbladder wall polyp. The commo n bile duct measures 3 mm. The visualized pancreas, aorta, and IVC are unremarkable. The right kidn ey measures 9.6 cm in length and the left kidney measures 9.6 cm. There is no hydronephrosis or zahira l calculus. Impression: 4 mm gallbladder wall polyp. Reviewed, dictated and finalized at location . Impression: 4 mm gallbladder wall polyp.
== END 2025-02-17 09:10 | disposition home or self-care (01) ==
LOC: MICIMG 09:09
PROVIDERS: PCP Emergency Medicine; Visit Provider Emergency Medicine
DX: K82.4 Cholesterolosis of gallbladder (principal); K76.9 Liver disease, unspecified
CPT/HCPCS: 76700

== ENCOUNTER 2025-06-04 09:11 | Outpatient (CLI) | payer BC, SELFPAY ==
--- OUTSIDE RECORDS SUMMARY | 2025-06-04 09:21 | XMS_ITS | Patient Health Record ---
Author Organization [facility] [place] ([address]) Address [address] [place] [address] Care Team Providers Care Senior Developer Name Role Phone Freddy Severino Primary Care Provider Marissa Brown Unavailable [phone] Allergies No Known Allergies Results Component Value Reference Range Notes RESPIRATORY ALLERGY PROFILE REGION VIII: [place], [place] Reviewed date:01/10/2025 01:57:49 PM Interpretation:Normal Performing Lab:[place], [facility], [address] [facility], [place], [address] TieraCandy Villalba MD Notes/Report: NON-FASTING DERMATOPHAGOIDES PTERONYSSIN US (D1) IGE <0.10 CLASS 0 DERMATOPHAGOIDES FARINAE (D2 ) IGE <0.10 CLASS 0 PENICILLIUM NOTATUM (M1) IGE <0.10 CLASS 0 CLADOSPORIUM HERBARUM (M2) IGE <0.10 CLASS 0 ASPERGILLUS FUMIGATUS (M3) IGE <0.10 CLASS 0 ALTERNARIA ALTERNATA (M6) IGE <0.10 CLASS 0 COCKROACH (I6) IGE <0.10 CLASS 0 MAPLE (BOX ELDER) (T1) IGE <0.10 CLASS 0 MOUNTAIN CEDAR (T6) IGE <0.10 CLASS 0 WALNUT TREE (T10) IGE <0.10 CLASS 0 SYCAMORE (T11) IGE <0.10 CLASS 0 COTTONWOOD (T14) IGE <0.10 CLASS 0 WHITE JON (T15) IGE <0.10 CLASS 0 OAK (T7) IGE <0.10 CLASS 0 ELM (T8) IGE <0.10 CLASS 0 HICKORY/PECAN TREE (T22) IGE <0.10 CLASS 0 WHITE MULBERRY (T70) IGE <0.10 CLASS 0 BERMUDA GRASS (G2) IGE <0.10 CLASS 0 CATHERINE GRASS (G6) IGE <0.10 CLASS 0 COMMON RAGWEED (SHORT) (W1) IGE <0.10 CLASS 0 ROUGH PIGWEED (W14) IGE <0.10 CLASS 0 SCOTTISH THISTLE (W11) IGE <0.10 CLASS 0 ROUGH MOSHER ELDER (W16) IGE <0.10 CLASS 0 MOUSE URINE PROTEINS (E72) IGE <0.10 CLASS 0 IMMUNOGLOBULIN E <2 <TH=105 kU/L CAT DANDER (E1) IGE <0.10 CLASS 0 DOG DANDER (E5) IGE <0.10 CLASS 0 INTERPRETATION Reviewed date:01/12/2025 07:14:19 AM Interpretation:Interpretation Performing Lab:[place], [facility], [address] [facility], [place], [address] TieraCandy Villalba MD Notes/Report: NON-FASTING INTERPRETATION Specific Level of Allergen IGE Class kU/L Specific IGE Antibody ----- --------- 0 <0.10 Absent/Undetectable 0/1 0.10-0.34 Very Low Level 1 0.35-0.69 Low Level 2 0.70-3.49 Moderate Level 3 3.50-17.4 High Level 4 17.5-49.9 Very High Level 5 50-100 Very High Level 6 >100 Very High Level The clinical relevance of allergen results of 0.10-0.34 kU/L are undetermined and intended for specialist use. Allergens denoted with a include results using one or more analyte specific reagents. In those cases, the test was developed and its analytical performance characteristics have been determined by by the U.S. Food and Drug Administration. This assay has been validated pursuant to the CLIA regulations and is used for clinical purposes. [facility]. It has not been cleared or approved Reason For Referral No Information Medications Medication SIG (Take, Route, Frequency, Duration) Notes Start Date End Date Status Ipratropium [place] 0.06 % 2 sprays in e ach nostril Nasally twice a day; Duration: 90 days Active Fexofenadine HCl 180 MG 1 tablet Orally Once a day; Duration: 90 days 01/06/2025 Active Tamoxifen Citrate 20 MG 1 tablet Orally Once a day Active Social History Tobacco Use: Social History Observation Description Date Details (start date - stop date) Never Smoker NA - NA Sex Assigned At : Social History Observation Description Sex Assigned At Female Tobacco Control (Standard) Question Answer Notes Tobacco use: Nonsmoker Problems Problem Type SNOMED Code ICD Code Onset Dates Problem Status W/U Status Risk Notes Problem Information temporarily unavailable Chronic rhinitis (J31.0) Active confirmed Vital Signs Blood pressure diastolic 75 mm Hg 01/06/2025 Oximetry 98 % 01/06/2025 Height 63 in 01/06/2025 Blood pressure systolic 104 mm Hg 01/06/2025 Weight 154.6 lbs 01/06/2025 BMI 27.38 kg/m2 01/06/2025 Encounters Encounter Location Date Provider Diagnosis [address] [address] 01/06/2025 Marissa Morley Hypertrophy of miri al turbinates J34.3 and Chronic rhinitis J31.[address] [address] 01/12/2025 Marissa Morley Assessments Encounter Date Diagnosis (ICD Code) Assessment Notes Treatment Notes Treatment Clinical Notes Section Notes 01/06/2025 Chronic rhinitis (ICD-10 - J31.0) See plan above 01/06/2025 Hypertrophy of nasal turbinates (ICD-10 - J34.3) Rosy presents with upper airway symptoms concerning for uncontrolled atopic disease. Her symptoms occur perennially. She has three dogs in her home. She has seen ENT in the past. - Discussed skin testing to aeroallergens today, however deferred due to high OOP cost. Will obtain ImmunoCaps. - Will start trial of Leah and ipratropium bromide. - Return in 4 weeks for further evaluation and management 01/06/2025 Other Plan Of Treatment No Information Insurance Providers Payer Name Payer Address Payer Phone Subscriber Number Group Number Insured Name Patient Relationship to Insured Coverage Start Date Coverage End Date [facility] [address] [place] [address] [id number] Rosy Cottrell Self - patient is the insured 3 Medical (General) History Medical History History ICD Code Malignant neoplasm of unspecified site o f unspecified female breast C50.919 Surgical History Surgery Date(Month/Year) lumpectomy 01/2023 double mastectomy 03/2023 Hospitalization History Reason Date(Month/Year) See Above
--- OUTSIDE RECORDS SUMMARY | 2025-06-04 09:21 | XMS_ITS | Patient Health Record ---
Author Organization [facility] Address [address] [facility] [address] [place] [address] Care Team Providers Care Ornamental Brick Installer Name Role Phone Severino Hayes MD Primary Care Provider Soila George Unavailable [phone] Allergies No Known Allergies Results Component Value Reference Range Notes LUPUS ANTICOAGULANT INTERPRE TATION Reviewed date:02/24/2025 01:06:59 PM Interpretation: Performing Lab:[facility], [address] [place] [address], [address] Notes/Report: Lupus Anticoagulant Interpretation The results are consistent with the presence of a lupus anticoagulant. It is suggested that testing be repeated at least 12 weeks after an initial positive test to confirm persistent positivity. Interpreted By: Everardo Sands MD 02/23/2025 10:05 1. Negative results do not rule out the presence of lupus anticoagulant due to the limitation of DRVVT and SCT senstivities. 2. Positive results may confirm the presence of lupus anticoagulant but also may occur in cases with certain interfering substances such as anticoagulant therapy. 3. Clinical history as well as other lab results must be carefully evaluated before making a diagnosis. 4. If the Lupus Evaluation is negative, and PTT or PT are prolonged, mixing studies should be sought to investigate factor deficiencies or inhibitors. If mixing studies are still prolonged, it may indicate the presence of an inhibitor other than lupus anticoagulent, or it may suggest false negative lupus anticoagulant results. BMP with BUN/CREAT RATIO Reviewed date:02/24/2025 01:06:59 PM Interpretation: Performing Lab:[facility], [address] [place], [address] Notes/Report: Sodium 140 133-146 mmol/L Potassium 4.1 3.5-5.1 mmol/L Chloride 105 98-107 mmol/L Carbon Dioxide 27 21-31 mmol/L Anion Gap 8 4-13 mmol/L Blood Urea Nitrogen 20 7-25 mg/dL Creatinine 0.89 0.60-1.30 mg/dL eGFRcr (CKD-EPI 2020) 80 >=60 mL/min/1.73 m2 BUN/Creatinine Ratio 22.5 10.0-22.0 . Calcium 9.2 8.3-10.5 mg/dL Glucose 97 70-100 mg/dL G6PD, QUANTITATIVE, RBC Reviewed date:02/24/2025 01:06:59 PM Interpretation: Performing Lab:[facility], [address] [place] [address], [id number] Notes/Report: G-6-PD, RBC 14.8 7.0-20.5 U/g Hgb Performing Organization Information: Site ID: Name: [facility] Address: [address] [place] [address] Director: Reji Mistry URINALYSIS, WITH MICROSCOPIC , REFLEX CULTURE Reviewed date:02/24/2025 01:06:59 PM Interpretation: Performing Lab:[facility], [address] [place] [address], [id number] Notes/Report: Urine Culture to follow. Color, Urine Light Yellow Appearance, Urine Clear Specific [place], Urine 1.013 1.005-1.030 . pH, Urine 6.0 5.0-7.0 . Protein, UA Negative Negative, 10 , 2 0 mg/dL Glucose, Urine Normal Normal mg/dL Ketones, Urine Negative Negative mg/dL Bilirubin, Urine Negative Negative Blood, Urine Negative Negative Nitrite, Urine Negative Negative Leukocyte Esterase, Urine 500 Negative John/uL Urobilinogen, Urine Normal Normal mg/dL RBC, Urine 0-2 0-2 /hpf WBC, Urine 6-10 0-5 /hpf Bacteria, Urine 1+ Squamous Epithelial Cells, Urine 0-5 LUPUS ANTICOAGULANT EVALUATI ON Reviewed date:02/24/2025 01:06:59 PM Interpretation: Performing Lab:[facility], [address] [place] [address], [address] Notes/Report: Lupus Anticoagulant Positive Negative Prothrombin Time (PT) 11.4 10.0-13.2 seconds INR 1.0 0.9-1.2 . APTT 45.5 24.8-38.4 seconds Thrombin Time 13.6 11.5-16.5 seconds Dilute Tan Viper Venom Time (dRVVT) Test Ratio 2.10 <=1.19 Ratio Silica Clotting Time (SCT) Test Ratio 2.64 <=1.16 Ratio 1. Negative results do not rule out the presence of lupus anticoagulant due to the limitation of DRVVT and SCT senstivities. 2. Positive results may confirm the presence of lupus anticoagulant but also may occur in cases with certain interfering substances such as anticoagulant therapy. 3. Clinical history as well as other lab results must be carefully evaluated before making a diagnosis. 4. If the Lupus Evaluation is negative, and PTT or PT are prolonged, mixing studies should be sought to investigate factor deficiencies or inhibitors. If mixing studies are still prolonged, it may indicate the presence of an inhibitor other than lupus anticoagulent, or it may suggest false negative lupus anticoagulant results. CULTURE: URINE Reviewed date:02/24/2025 01:06:59 PM Interpretation: Performing Lab:[facility], [address] [place] [address], [id number] Notes/Report: Test: Culture: Urine Specimen Source: Urine - Clean Catch Specimen Type: Urine Specimen Date: 02/22/2025913 Result Date: 02/24/2025658 Result Status: Final result Abnormal: No Resulting Lab: [facility] [address] [place] [address] CULTURE No growth in 1 day (detection level of 10,000 colonies / ml.) Result Report SEE RESULTS BELOW CK Reviewed date:02/24/2025 01:06:59 PM Interpretation: Performing Lab:[facility], [address] [place] [address], [address] Notes/Report: CK, Total 43 26-192 units/L Reason For Referral No Information Medications Medication SIG (Take, Route, Frequency, Duration) Notes Start Date End Date Status Tamoxifen Citrate 20 MG 1 tablet Orally Once a day Active [place] 3 1000 MG 1 capsule Orally Three times a day Active Multivitamin - 1 tablet Orally Once a day Active Probiotic - as directed Orally Active Hydroxychloroquine Sulfate 200 MG 1 Orally daily; Duration: 30 days 03/11/2025 06/09/2025 Active Social History Tobacco Use: Social History Observation Description Date Details (start date - stop date) Never Smoker NA - NA Household Question Answer Notes Marital status: Tobacco Control (Standard) Question Answer Notes Tobacco use: Nonsmoker Problems Problem Type SNOMED Code ICD Code Onset Dates Problem Status W/U Status Risk Notes Problem Information temporarily unavailable Sjogren's syndrome with keratoconjunctivitis sicca (M35.01) Active confirmed Vital Signs Heart Rate 79 /min 02/22/2025 Temperature 98.3 degrees Fahrenheit 02/22/2025 Height-cm 160.02 cm 02/22/2025 Oximetry 98 % 02/22/2025 Blood pressure diastolic 70 mm Hg 02/22/2025 Weight-kg 71.67 kg 02/22/2025 Height 63 in 02/22/2025 Blood pressure systolic 110 mm Hg 02/22/2025 Weight 158.0 lbs 02/22/2025 BMI 27.99 kg/m2 02/22/2025 Encounters Encounter Location Date Provider Diagnosis [facility] [address] [facility] [address] [phone] 02/22/2025 Soila Beasley HARI positive R76.8 ; Sjogren's syndrome with keratoconjunctivitis sicca M35.01 ; Multiple joint pain M25.50 and Elevated liver enzymes R74.8 [facility] [address] [facility] [address] [place] [phone] 03/11/2025 Soila Du HARI positive R76.8 ; Sjogren's syndrome with keratoconjunctivitis sicca M35.01 ; Multiple joint pain M25.50 ; Elevated liver enzymes R74.8 and Lupus anticoagulant positive R76.0 [facility] [address] [facility] [address] [place] [address] 02/17/2025 Soila Beasley Assessments Encounter Date Diagnosis (ICD Code) Assessment Notes Treatment Notes Treatment Clinical Notes Section Notes 02/22/2025 HARI positive (ICD-10 - R76.8) 49 year old female with bilateral ankle pain, mild dry eyes, mild dry mouth, positiev HARI, SSA, SSB and RF. History and labs suggest Sjogren's disease. Liver enzymes have been elevated on and off. Additional labs will be ordered. Follow up visit will be scheduled. Thank you for referring this patient. cc Dr. Severino Hayes 02/22/2025 Sjogren's syndrome w ith keratoconjunctivitis sicca (ICD-10 - M35.01) 49 year old female with bilateral ankle pain, mild dry eyes, mild dry mouth, positiev HARI, SSA, SSB and RF. History and labs suggest Sjogren's disease. Liver enzymes have been elevated on and off. Additional labs will be ordered. Follow up visit will be scheduled. Thank you for referring this patient. cc Dr. Severino Hayes 03/11/2025 HARI positive (ICD-10 - R76.8) labs discussed with patient, has Sjogren's disease, start plaquenil, return in 3 months, advised to quit drinking wine due to liver issues, repeat lupus anticoagulant at next visit 03/11/2025 Sjogren's syndrome w ith keratoconjunctivitis sicca (ICD-10 - M35.01) labs dis cussed with patient, has Sjogren's disease, start plaquenil, return in 3 months, advised to quit drinking wine due to liver issues, repeat lupus anticoagulant at next visit 03/11/2025 Multiple joint pain (ICD-10 - M25.50) labs discussed with patient, has Sjogren's disease, start plaquenil, return in 3 months, advised to quit drinking wine due to liver issues, repeat lupus anticoagulant at next visit 02/22/2025 Multiple joint pain (ICD-10 - M25.50) 49 year old female with bilateral ankle pain, mild dry eyes, mild dry mouth, positiev HARI, SSA, SSB and RF. History and labs suggest Sjogren's disease. Liver enzymes have been elevated on and off. Additional labs will be ordered. Follow up visit will be scheduled. Thank you for referring this patient. cc Dr. Severino Hayes 03/11/2025 Elevated liver enzym es (ICD-10 - R74.8) labs discussed with patient, has Sjogren's disease, start plaquenil, return in 3 months, advised to quit drinking wine due to liver issues, repeat lupus anticoagulant at next visit 02/22/2025 Elevated liver enzym es (ICD-10 - R74.8) 49 year old female with bilateral ankle pain, mild dry eyes, mild dry mouth, positiev HARI, SSA, SSB and RF. History and labs suggest Sjogren's disease. Liver enzymes have been elevated on and off. Additional labs will be ordered. Follow up visit will be scheduled. Thank you for referring this patient. cc Dr. Severino Hayes 03/11/2025 Lupus anticoagulant positive (ICD-10 - R76.0) labs discussed with patient, has Sjogren's disease, start plaquenil, return in 3 months, advised to quit drinking wine due to liver issues, repeat lupus anticoagulant at next visit Plan Of Treatment Pending Test Test Name Order Date ACTIN (SMOOTH MUSCLE) ANTIBODY 5 Next Appt Details Provider Name:Soila Beasley, 06/09 01:00:00 PM, [address], [place], [address], Insurance Providers Payer Name Payer Address Payer Phone Subscriber Number Group Number Insured Name Patient Relationship to Insured Coverage Start Date Coverage End Date [employer] [place] [address] [place] [address] [id number] Rosy Cottrell Self - patient is the insured Medical (General) History Medical History History ICD Code breast cancer, migraines, sialoadenitis Surgical History Surgery Date(Month/Year) mastectomy
[2025-06-04 09:27] LABS: Hematocrit 44.1 % (37.0-47.0); Hemoglobin 14.9 g/dL (12.0-15.0); Immature Granulocyte Percent A 0.2 % (0-0.5); Lymphocytes Absolute Auto 2.02 K/mm3 (0.9-3.2); Mean Corpuscular HGB Conc 33.8 g/dl (32-36); Mean Corpuscular Hemoglobin 30.7 pg (26-34); Mean Corpuscular Volume 90.9 fl (80-100); Nucleated Red Blood Cells Absolute Auto 0.000 K/mm3 (0.0-0.012); Nucleated Red Blood Cells Perc 0.0 % (0.0-0.2); Platelet Count Result 223 k/mm3 (150-375); Red Blood Count 4.85 M/mm3 (4.2-5.4); White Blood Count 4.8 K/mm3 (4.5-10.0)
[2025-06-04 09:52] LABS: Alanine Aminotransferase 20 U/L (6-35); Albumin Level 4.5 g/dL (3.5-5.1); Alkaline Phosphatase 49 U/L (38-126); Anion Gap 9 mmol/L (4-12); Aspartate Amino Transferase 26 U/L (14-36); Bilirubin,Total 0.8 mg/dL (0.2-1.3); Blood Urea Nitrogen 16 mg/dL (7-17); Calcium 8.8 mg/dL (8.4-10.2); Carbon Dioxide 25 mmol/L (22-30); Chloride 106 mmol/L (98-107); Estimated Glomerular Filt Rate > 60; Glucose 109 mg/dL (65-110); Potassium 4.4 mmol/L (3.4-5.0); Sodium 140 mmol/L (137-145); Total Protein 7.6 g/dL (6.3-8.2)
== END 2025-06-04 09:12 | disposition home or self-care (01) ==
LOC: ANHLAB 09:12
PROVIDERS: PCP Emergency Medicine; Visit Provider Internal Medicine Hematology & Oncology
DX: C50.111 Malignant neoplasm of central portion of right female breast (principal); Z17.0 Estrogen receptor positive status [ER+]
CPT/HCPCS: 36415; 80053; 85025; 86300